=== PATIENT | male | born 1965 | race Caucasian/White ===

== ENCOUNTER → 2020-02-16 10:51 | Outpatient (CLI) | payer OTHER, SELFPAY ==
--- NOTE | 2020-02-16 10:59 | XR_ITS ---
PROCEDURE: XR CHEST 2V CLINICAL HISTORY: atypical angina COMPARISON: No exams were available for comparison FINDINGS: There is mild cardiomegaly without failure. The lungs are clear without infiltrates, suspicious nodules, or pleural effusions. Old left 8th rib fracture IMPRESSION: Mild cardiomegaly Dictated by: Jah Patel MD 02/16/2020 12:17 Electronically signed by Jah Ptael MD in [place] 02/16/2020 12:17
[2020-02-16 12:19] LABS: Basophils # 0.1 K/mm3 (0-0.2); Basophils % 0.7 % (0.1-2.0); Eosinophils # 0.3 K/mm3 (0.0-0.4); Eosinophils % 2.5 % (0.1-12.0); Hematocrit 42.1 % (42.0-52.0); Hemoglobin 14.3 g/dL (14.1-18.0); Lymphocytes # 2.3 K/mm3 (0.7-4.5); Lymphocytes % 21.2 % (10-50); Mean Corpuscular HGB Conc 34.1 g/dL (31.8-35.4); Mean Corpuscular Hemoglobin 32.2 pg (27.0-31.2); Mean Corpuscular Volume 94.6 fl (80-94); Mean Platelet Volume 8.9 fl (7.4-10.4); Monocytes # 0.6 K/mm3 (0.1-1.0); Monocytes % 5.4 % (1.7-9.3); Neutrophils # 7.5 K/mm3 (1.8-7.8); Neutrophils % 70.1 % (37.0-80.0); Platelet Count 220 K/mm3 (142-424); Red Blood Count 4.45 M/mm3 (4.60-6.20); Red Cell Distribution Width 13.1 % (11.5-17.5); White Blood Count 10.7 K/mm3 (4.8-10.8)
[2020-02-16 13:11] LABS: Chloride 105 mmol/L (98-107); Potassium 4.9 mmoL/L (3.5-5.1); Sodium 138 mmol/L (136-145)
[2020-02-16 13:14] LABS: Anion Gap 12.9 mEq/L (5-15); Blood Urea Nitrogen 24 mg/dl (9-20); Calcium 9.2 mg/dl (8.4-10.2); Carbon Dioxide 25 mmol/L (22.0-30.0); Estimated Glomerular Filt Rate 78 ml/min (>60); GFR (African American) 94 ML/MIN (>60); Glucose 90 mg/dl (74-100)
[2020-02-16 13:32] LABS: Free T4 (Free Thyroxine) 0.67 ng/dl (0.78-2.19)
== END ==
PROVIDERS: PCP Family Medicine; Visit Provider Internal Medicine
DX: I20.8 Other forms of angina pectoris (principal); R00.1 Bradycardia, unspecified; R06.00 Dyspnea, unspecified; R94.31 Abnormal electrocardiogram [ECG] [EKG]; Z87.891 Personal history of nicotine dependence
CPT/HCPCS: 36415; 71046; 80048; 84439; 84443; 85025; 93306

== ENCOUNTER 2020-02-17 09:14 | Day surgery (SDC) | payer OTHER, SELFPAY ==
[2020-02-17] VITALS (13 sets, daily range): BP systolic 95–141; BP diastolic 45–87; PULSE 49–60; RESP 16–20; TEMP 36.6; O2SAT 92–98; BMI 30.2
[2020-02-17 09:49] LABS: Basophils # 0.1 K/mm3 (0-0.2); Basophils % 0.7 % (0.1-2.0); Eosinophils # 0.3 K/mm3 (0.0-0.4); Eosinophils % 2.3 % (0.1-12.0); Hematocrit 43.6 % (42.0-52.0); Hemoglobin 14.8 g/dL (14.1-18.0); Lymphocytes # 2.4 K/mm3 (0.7-4.5); Lymphocytes % 18.9 % (10-50); Mean Corpuscular Hemoglobin 32.6 pg (27.0-31.2); Mean Corpuscular Volume 95.8 fl (80-94); Mean Platelet Volume 9.1 fl (7.4-10.4); Monocytes # 0.7 K/mm3 (0.1-1.0); Monocytes % 5.1 % (1.7-9.3); Neutrophils # 9.2 K/mm3 (1.8-7.8); Platelet Count 227 K/mm3 (142-424); Red Blood Count 4.55 M/mm3 (4.60-6.20); White Blood Count 12.6 K/mm3 (4.8-10.8)
[2020-02-17 09:53] LABS: Chloride 106 mmol/L (98-107); Sodium 138 mmol/L (136-145)
[2020-02-17 09:54] LABS: Potassium 4.4 mmoL/L (3.5-5.1)
[2020-02-17 09:56] LABS: Blood Urea Nitrogen 18 mg/dl (9-20); Creatinine Clearance Estimated 113 mL/min (50-200); Estimated Glomerular Filt Rate 78 ml/min (>60); GFR (African American) 94 ML/MIN (>60)
[2020-02-17 09:57] LABS: Anion Gap 10.4 mEq/L (5-15); Calcium 9.1 mg/dl (8.4-10.2); Carbon Dioxide 26 mmol/L (22.0-30.0); Glucose 100 mg/dl (74-100)
--- NOTE | 2020-02-17 12:30 | IR_ITS ---
APPROVED REPORT PROCEDURES Left heart catheterization Left ventriculogram Selective coronary angiogram INDICATION Class III-IV angina pectoris, Previous inferior lateral myocardial infarction by EKG Informed consent was obtained prior to the procedure. COMPLICATIONS None Estimated Blood Loss: less than 10ml TECHNIQUE One percent lidocaine used to anesthetize the right anterior aspect of the wrist. The right radial artery was accessed via the Seldinger technique. A 6 Israeli sheath was placed in the right radial artery. 2.5 mg of verapamil, 800 mcg of nitroglycerin, 1mg Lidocaine and 5000 U Heparin were given through the arterial sheath. The trap catheter was also used to perform left heart catheterization, left ventriculogram and selective coronary angiogram. At the end of the procedure the sheath was removed good hemostasis was achieved using Traclet band, patient was transferred to the postop holding area in stable condition. ANGIOGRAPHIC RESULTS The left main artery Normal The left anterior descending artery Is a diffusely small caliber vessel with mild diffuse 10% luminal irregularities. The circumflex artery Is nondominant of normal caliber with diffuse 10% mild luminal irregularities The right coronary artery Is a dominant vessel and normal The GARCIA ventriculogram reveals Normal 60% The left ventricular end-diastolic pressure Moderate to severely elevated at 30 mmHg IMPRESSION Mild rld-[id number] luminal irregularities as described above with a small caliber LAD consistent with hypertensive vasculopathy Normal ejection fraction Moderate to severely elevated LVEDP PLAN 1. Treat diastolic dysfunction. Patient will be started on Lasix 20 mg daily and advised to restrict salt and fluid intake 2. Daily baby aspirin 3. LDL less than 70 4. Risk factor modification Electronically signed by : Aldo Arrington, 02/17/2020 11:43:18
== END 2020-02-17 14:21 | disposition home or self-care (01) ==
LOC: CATHLAB 09:17
PROVIDERS: PCP Family Medicine; Visit Provider Internal Medicine
DX: R00.1 Bradycardia, unspecified; R06.00 Dyspnea, unspecified; R94.31 Abnormal electrocardiogram [ECG] [EKG]; Z87.891 Personal history of nicotine dependence; I25.110 Atherosclerotic heart disease of native coronary artery with unstable angina pectoris; I10 Essential (primary) hypertension; Z79.82 Long term (current) use of aspirin; Z79.899 Other long term (current) drug therapy
CPT/HCPCS: 80048; 85025; 93458; 99152; C1725; C1769; J1644; Q9967

== ENCOUNTER → 2020-02-24 16:12 | Outpatient (CLI) | payer OTHER, SELFPAY ==
[2020-02-24 18:36] LABS: Alanine Aminotransferase 35 U/L (12-78); Aspartate Amino Transferase 29 U/L (17-59); Bilirubin,Unconjugated 0.2 mg/dL (0.0-1.1)
[2020-02-24 18:37] LABS: Albumin Level 3.4 g/dl (3.5-5.0); Alkaline Phosphatase 83 U/L (38-126); Bilirubin,Direct 0.1 mg/dl (0.0-0.4); Bilirubin,Indirect 0.2 mg/dL (0.0-0.9); Bilirubin,Total 0.3 mg/dl (0.2-1.3); Chol/HDL Ratio 3.7 (1-3.5); Cholesterol 174 mg/dl (140-200); HDL Cholesterol 47 mg/dl (40-60); Magnesium 2.1 mg/dl (1.6-2.3); Triglycerides 210 mg/dl (30-150); VLDL Cholesterol 42 mg/dL (0-40)
== END ==
PROVIDERS: Visit Provider Physician Assistant
DX: I25.10 Atherosclerotic heart disease of native coronary artery without angina pectoris (principal); R00.1 Bradycardia, unspecified; R94.31 Abnormal electrocardiogram [ECG] [EKG]; Z87.891 Personal history of nicotine dependence
CPT/HCPCS: 36415; 80061; 80076; 83735

== ENCOUNTER 2025-04-01 11:46 | Outpatient (CLI) | payer OTHER, SELFPAY ==
--- OUTSIDE RECORDS SUMMARY | 2025-02-25 11:00 | XMS_ITS | Encounter Summary ---
Author Organization [place] [address] Care Team Providers Care Facility Examiner Name Role Phone Summer Garcia MD Primary Care Provider [phone] Aldo Arrington MD Unavailable [phone] Reason for Referral * Consultation (Routine) - Pending Review Specialty Diagnoses / Procedures Referred By Clara back Referred To Contact Diagnoses Degeneration of intervertebral disc of lumbar region with discogenic back pain and lower extremity pain Acute bilateral low back pain with bilateral sciatica Procedures [place] OFFICE/OUTPATIENT NEW MODERATE MDM 45 MINUTES Tiffanie Barroso PA-C [address] [place] [address] Phone: tel: fax: Referral ID Status Reason Start Date Expiration Date V isits Requested Visits Authorized [id number] Pending Review 02/25/2025 02/25/2026 99 99 Reason for Visit * Reason Comments Back Pain low backstarts at bu ttocks and shoots to upper thigh Encounter Details Date Type Department Care Team (Late st Contact Info) Description 02/25/2025 11:00 AM EDT Office Visit [facility] [address] [place] [address] Tiffanie Barroso PA-C [address] [place] [address] Degeneration of intervertebral disc of lumbar region with discogenic back pain and lower extremity pain (Primary Dx); Acute bilateral low back pain with bilateral sciatica; Chronic low back pain, unspecified back pain laterality, unspecified whether sciatica present Social History Tobacco Use Types Packs/Day Years Used Date Smoking Tobacco: Former Cigarettes 1 20 0 08/20/1984 - 08/20/2004 Smokeless Tobacco: Never Tobacco Cessation:Counseling Given: Not Answered Alcohol Use Standard Drinks/Week Comments Yes 0 (1 standard drink = 0.6 oz pur e alcohol) 2 mixed drink, PHQ-2 Answer Date Recorded PHQ-2 Total Score 0 09/08/2024 Sex and Gender Information Value Date Recorded Sex Assigned at Not on file Legal Sex Male 6:59 PM EDT Gender Identity Not on file Sexual Orientation Not on file documented as of this encounter Last Filed Vital Signs Vital Sign Reading Time Taken Comments Blood Pressure 118/80 02/25/2025 11:13 AM EDT Pulse 72 02/25/2025 11:13 AM EDT Temperature - - Respiratory Rate 16 02/25/2025 11:13 AM EDT Oxygen Saturation 99% 02/25/2025 11:13 AM EDT Inhaled Oxygen Concentration - - Weight 99.3 kg (219 lb) 02/25/2025 11:13 AM EDT Height 179.1 cm (5' 10.5 ) 02/25/2025 11:13 AM E DT Body Mass Index 30.98 02/25/2025 11:13 AM EDT documented in this encounter Functional Status * Is the person deaf or does he/she have serious difficulty hearing? Answer Date of Assessment Author No 09/08/2024 3:00 PM Lary Wade RMA * Is the person blind or does he/she have serious difficulty seeing even when wearing glasses? Answer Date of Assessment Author No 09/08/2024 3:00 PM Trinh Wade RMA * Does this person have serious difficulty walking or climbing stairs? Answer Date of Assessment Author No 09/08/2024 3:00 PM Lary Wade RMA * Does this person have difficulty dressing or bathing? Answer Date of Assessment Author No 09/08/2024 3:00 PM Lary Wade RMA * Because of a physical, mental or emotional condition, does this person have difficulty doing errands alone such as visiting a doctor's office or shopping? Answer Date of Assessment Author No 09/08/2024 3:00 PM Lary Wade RMA documented as of this encounter Mental Status * Because of a physical, mental or emotional condition, does this person have serious difficulty concentrating, remembering or making decisions? Answer Entry Date Author No 09/08/2024 3:00 PM Lary Wade RMA documented in this encounter Ordered Prescriptions Prescription Sig Dispense Quantity Refills Last Filled Start Date End Date tiZANidine (ZANAFLEX) 4 mg Oral TabletIndications: Chronic low back pain, unspecified back pain laterality, unspecified whether sciatica present TAKE 1 TABLET BY MOUTH AT BEDTIME NEEDED 90 Tablet 02/25/2025 documented in this encounter Progress Notes * Tiffanie Barroso PA-C - 02/25/2025 11:00 AM EDT Chief Complaint Patient presents with ??? Back Pain low back starts at buttocks and shoots to upper thigh HPI: Pt having pain in left leg pain, sharp, post to foot x 1mo, now also in right leg post to knee. No incont. No injury. Hx of ddd with lumbar fusion. ROS: Review of Systems See above, otherwise noncontributory. See time date stamps in EMR for other pertinent history components reviewed as part of today's encounter. OBJECTIVE: Vitals: 02/25/25 1113 BP: 118/80 Pulse: 72 Resp: 16 SpO2: 99% Weight: 219 lb (99.3 kg) Height: 5' 10.5 (1.791 m) Body mass index is 30.98 kg/m??. Physical Exam Cardiovascular: Rate and Rhythm: Normal rate and regular rhythm. Pulmonary: Effort: Pulmonary effort is normal. Breath sounds: Normal breath sounds. Musculoskeletal: Comments: Back: normal strength, tone, sensation and muscle mass bilat le. Reflexes are normal and symmetric bilat le. Rom: back limited range of motion with pain. SLR neg bilat. No results found for this visit on 02/25/25. ASSESSMENT/PLAN: Diagnoses and all orders for this visit: Degeneration of intervertebral disc of lumbar region with discogenic back pain and lower extremity pain - betamethasone acet-betamethasone sodium phos (CELESTONE) injection 6 mg - AMB REFERRAL TO ORTHOPEDIC SURGERY Acute bilateral low back pain with bilateral sciatica - betamethasone acet-betamethasone sodium phos (CELESTONE) injection 6 mg - AMB REFERRAL TO ORTHOPEDIC SURGERY Chronic low back pain, unspecified back pain laterality, unspecified whether sciatica present Overview: Has followed with chiropracter in past Takes zanaflex for flares No recent imaging Orders: - tiZANidine (ZANAFLEX) 4 mg Oral Tablet; TAKE 1 TABLET BY MOUTH AT BEDTIME NEEDED Dispense: 90Tablet; Refill: 0 Sx care. Follow up if no significant improvement or worsening of sx's or as recommended. documented in this encounter Plan of Treatment Upcoming Encounters Date Type Department Care Team (Late st Contact Info) Description 04/09/2025 9:15 AM EDT Office Visit [facility] [address] [id number] Jj Motta MD [address] [facility] [address] [place] [address] 04/23/2025 3:00 PM EDT Office Visit [facility] [address] [place] [address] Summer Garcia MD [address] [place] [address] Scheduled Referrals Name Type Priority Associated Diagnoses Orde r Schedule AMB REFERRAL TO ORTHOPEDIC SURGERY Outpatient Referral Routine Degeneration of intervertebral disc of lumbar region with discogenic back pain and lower extremity pain Acute bilateral low back pain with bilateral sciatica Ordered: 02/25/2025 documented as of this encounter Goals Goal Patient Goal Type Associated Problems Recent Progress Patient-Stated? Author Blood Pressure < 140/90 Blood Pressure 122/80(2024 12:23 PM EDT) No Omid Quezada, CYNDIE Eat better, exercise, reach an ideal body weight General No Kayli Roca Gerda NILDA Stay Tobacco Free Lifestyle No Abelino, NILDA Carpio documented as of this encounter Visit Diagnoses Diagnosis Degeneration of intervertebral disc of lumbar region with discogenic back pain and lower extremity pain- Primary Acute bilateral low back pain with bilateral sciatica Chronic low back pain, unspecified back pain laterality, unspecified whether sciatica present documented in this encounter Administered Medications Inactive Administered Medications - up to 1 most recent administrations Medication Order MAR Action Action Date Dose Rate Site betamethasone acet-betamethasone sodium phos (CELESTONE) injection 6 mg 6 mg, Intramuscular, ONCE, 1 dose, On Sun02/25/25 at 1145, Do not refrigerate, Dx: 1. Degeneration of intervertebral disc of lumbar region with discogenic back pain and lower extremity pain 2. Acute bilateral low back pain with bilateral sciaticaIndications:Degener ation of intervertebral disc of lumbar region with discogenic back pain and lower extremity pain,Acute bilateral low back pain with bilateral sciatica Given 02/25/2025 11:41 AM EDT 6 mg Left upper gluteus documented in this encounter Discontinued Medications Medication Sig Discontinue Reason Start Date End Da te tiZANidine (ZANAFLEX) 4 mg Oral TabletIndications:Chroni c low back pain, unspecified back pain laterality, unspecified whether sciatica present TAKE 1 TABLET BY MOUTH AT BEDTIME NEEDED Reorder 04/29/2024 02/25/2025 documented as of this encounter Care Teams Facility Examiner Relationship Specialty Start Date End Date Summer Garcia MD [address] [place] [address] PCP - General Family Medicine 08/06/19 Aldo Arrington MD [address] [place] [address] Internal Medicine-Cardiovascular Disease 04/29/24 documented as of this encounter
--- OUTSIDE RECORDS SUMMARY | 2025-03-17 09:25 | XMS_ITS | Encounter Summary ---
Author Organization [facility] Address [address] [place] [address] Care Team Providers Care Precision Honer Name Role Phone Summer Garcia MD Primary Care Provider [phone] Aldo Arrington MD Unavailable [phone] Encounter Details Date Type Department Care Team (Late st Contact Info) Description 03/17/2025 9:25 AM EDT Ancillary Procedure [facility] [address] [facility] [address] [place] [address] Lyla Castro PA [address] [address] Lumbar pain Social History Tobacco Use Types Packs/Day Years Used Date Smoking Tobacco: Former Cigarettes 1 20 0 08/20/1984 - 08/20/2004 Smokeless Tobacco: Never Alcohol Use Standard Drinks/Week Comments Yes 0 (1 standard drink = 0.6 oz pur e alcohol) 2 mixed drink, PHQ-2 Answer Date Recorded PHQ-2 Total Score 0 09/08/2024 Sex and Gender Information Value Date Recorded Sex Assigned at Not on file Legal Sex Male 6:59 PM EDT Gender Identity Not on file Sexual Orientation Not on file documented as of this encounter Functional Status * Is the [...] Lary Wade RMA documented in this encounter Plan of Treatment Upcoming Encounters Date Type Department Care Team (Late st Contact Info) Description 04/09/2025 9:15 AM EDT Office Visit [facility] [address] [phone] Jj Motta MD [address] [facility] [address] [place] [address] 04/23/2025 3:00 PM EDT Office Visit [facility] [address] [place] [address] Summer Garcia MD [address] [place] [address] documented as of this encounter Goals Goal Patient Goal Type Associated Problems Recent Progress Patient-Stated? Author Blood Pressure < 140/90 Blood Pressure 122/80(2024 12:23 PM EDT) No Omid Quezada, CYNDIE Eat better, exercise, reach an ideal body weight General No Kayli Roca RMA Stay Tobacco Free Lifestyle Kayli Woods RMA documented as of this encounter Procedures Procedure Name Priority Date/Time Associated Diagnosis Comments XR LUMBAR SPINE AP LATERAL FLEXION AND EXTENSION Routine 03/17/2025 9:29 AM EDT Lumbar pain documented in this encounter Results * XR LUMBAR SPINE AP LATERAL FLEXION AND EXTENSION (03/17/2025 9:29 AM EDT) Narrative Genericuser, Miranda - 03/17/2025 9:29 AM EDT Please see physician's note from office encounter for x-ray imaging result Lyla [facility] IMG DIAGNOSTIC IMAGING ORDERABL ES Final Result documented in this encounter Visit Diagnoses Diagnosis Lumbar pain Lumbago documented in this encounter Care Teams Precision Honer Relationship Specialty Start Date End Date Summer Garcia MD [address] [place] [address] PCP - General Family Medicine 08/06/19 Aldo Arrington MD [address] [place] [address] Internal Medicine-Cardiovascular Disease 04/29/24 documented as of this encounter
--- OUTSIDE RECORDS SUMMARY | 2025-03-17 09:45 | XMS_ITS | Encounter Summary ---
Author Organization [facility] Address [address] [place] [address] Care Team Providers Care Mount Loader Name Role Phone Summer Garcia MD Primary Care Provider [phone] Aldo Arrington MD Unavailable [phone] Reason for Referral * MRI/CAT Scan (Routine) - AFF Authorization Not Needed Specialty Diagnoses / Procedures Referred By Contjennifer t Referred To Contact Orthopedic Surgery Diagnoses Lumbar pain Procedures MRI LUMBAR SPINE WO CONTRAST Lyla Castro PA [address] [place] [address] Phone: tel: fax: [facility] [address] [place] [address] Phone: tel: fax: Referral ID Status Reason Start Date Expiration Date Visits Requested Visits Authorized [id number] AFF Authorization Not Needed 03/17/2025 03/17/2026 1 1 Reason for Visit * Reason Comments Pain Encounter Details Date Type Department Care Team (Latest Contact Info) Description 03/17/2025 9:45 AM EDT Office Visit [facility] [address] [place] [address] Lyla Castro PA [address] [place] [phone] Lumbar pain (Primary Dx); Lumbar radiculopathy; Degeneration of intervertebral disc of lumbar region with discogenic back pain and lower extremity pain; Lumbar spondylosis; Myofascial pain; History of lumbar fusion; Sciatica, unspecified laterality Social History Tobacco Use Types Packs/Day Years [...] Sign Reading Time Taken Comments Blood Pressure - - Pulse - - Temperature - - Respiratory Rate - - Oxygen Saturation - - Inhaled Oxygen Concentration - - Weight 99.8 kg (220 lb) 03/17/2025 9:39 AM EDT Height 179.1 cm (5' 10.5 ) 03/17/2025 9:39 AM ED T Body Mass Index 31.12 03/17/2025 9:39 AM EDT documented in this encounter Functional [...] Assessment Author No 09/08/2024 3:00 PM Trinh WadeEMELYLary documented as of this encounter Mental Status * Because of a physical, mental or emotional condition, does this person have serious difficulty concentrating, remembering or making decisions? Answer Entry Date Author No 09/08/2024 3:00 PM Lary Wade NILDA documented in this encounter Progress Notes * Lyla Castro PA - 03/17/2025 9:45 AM EDT Images from the original note were not included. 03/18/25 CHIEF COMPLAINT: Chief Complaint Patient presents with Lower Back - Pain HISTORY OF PRESENT ILLNESS: 60 y.o. male Low back pain Bilateral leg pain Radiates posteriorly from buttocks to toes Symptoms started around November 2024 No bowel or bladder dysfunction No saddle anesthesia Previous Treatment: Tylenol Ibuprofen IM steroid Oral steroid Past Medical History: Body mass index is 31.12 kg/m??. L5-S1 AP fusion done 20 years ago Past Medical History: Diagnosis Date Carcinoid tumor of colon (HCC) 2014 Chronic back pain Colon cancer (HCC) Former smoker H/O malignant carcinoid tumor 04/24/2018 Resected surgically 2014 Follow up sigmoidoscopy showed no residual lesion HTN (hypertension) Hyperlipidemia Obesity Prostate disorder Social History: reports that he quit smoking about 20 years ago. His smoking use included cigarettes. He started smoking about 40 years ago. He has a 20 pack-year smoking history. He has never used smokeless tobacco. He reports current alcohol use. He reports that he does not use drugs. PHYSICAL EXAM: LUMBAR/SACRALEXAMINATION: Inspection/Palpation: Points to generalized lumbar spine and bilateral buttocks as maximal source of pain Range of Motion: Very guarded Motor: 5/5 strength bilateral lower extremities Sensation: Intact Special Tests: Positive straight leg raise bilaterally Reflexes: Deferred Gait & station: Stable Diagnostic Testing: L spine X rays 4V: Independently reviewed L5-S1 interbody fusion hardware appears stable Mild adjacent segment changes at L4-5 Significant thoracic degenerative changes MRI Lumbar Spine: Independently reviewed None Impression: 1. Lumbar pain XR LUMBAR SPINE AP LATERAL FLEXION AND EXTENSION MRI LUMBAR SPINE WO CONTRAST 2. Lumbar radiculopathy 3. Degeneration of intervertebral disc of lumbar region with discogenic back pain and lower extremity pain 4. Lumbar spondylosis 5. Myofascial pain 6. History of lumbar fusion 7. Sciatica, unspecified laterality Medical decision Making: Patient presents for evaluation of persistent low back and bilateral leg pain. Symptoms have been going on for the past 3 months and progressively worsening. He has tried multiple different medications and home exercises with no improvement. He has had a prior L5-S1 interbody fusion 20 years ago. He has some adjacent segment changes. Will get a lumbar MRI to evaluate for neural compression Plan: Lumbar MRI Follow-up with me to discuss results Reviewed imaging with patient Reassurance given Activity as tolerated Lyla Castro PA-C [facility] [phone] Disclaimer: This note was partially transcribed via voice recognition software. Though all efforts were made to ensure accuracy, it is possible this note may contain survey crew chief errors. Please bring any inaccuracies discovered to my attention so I may make a corrective addendum in a timely fashion. documented in this encounter Plan of Treatment Upcoming Encounters Date Type Department Care Team (Late st Contact Info) Description 04/09/2025 9:15 AM EDT [facility] [address] [place] [address] Jj Motta MD [address] [facility] [address] [place] [address] 04/23/2025 3:00 PM EDT Office Visit [facility] [address] [place] [address] Summer Garcia MD [address] [place] [address] documented as of this encounter Goals Goal Patient Goal Type Associated Problems Recent Progress Patient-Stated? Author Blood Pressure < 140/90 Blood Pressure 122/80(2024 12:23 PM EDT) Omid Soto, CYNDIE Eat better, exercise, reach an ideal body weight General No Kayli Roca RMA Stay Tobacco Free Lifestyle No Kayli Roca RMA documented as of this encounter Results * MRI LUMBAR SPINE WO CONTRAST (03/25/2025 2:57 PM EDT) Narrative [facility] - 03/25/2025 2:57 PM EDT Please see the scanned MRI report associated with this order on the Imaging tab of the patient's chart. us Lyla FERRELL IMG MRI ORDERABLES Final Result [facility] * XR LUMBAR SPINE AP LATERAL FLEXION AND EXTENSION (03/17/2025 9:29 AM EDT) Narrative Miranda Zimmer - 03/17/2025 9:29 AM EDT Please see physician's note from office encounter for x-ray imaging result us Lyla FERRELL IMG DIAGNOSTIC IMAGING ORDERABL ES Final Result documented in this encounter Visit Diagnoses Diagnosis Lumbar pain- Primary Lumbago Lumbar radiculopathy Thoracic or lumbosacral neuritis or radiculitis, unspecified Degeneration of intervertebral disc of lumbar region with discogenic back pain and lower extremity pain Lumbar spondylosis Lumbosacral spondylosis without myelopathy Myofascial pain Mylagia and myositis, unspecified History of lumbar fusion Sciatica, unspecified laterality Lumbar pain Lumbago Lumbar pain Lumbago documented in this encounter Care Teams Mount Loader Relationship Specialty Start Date End Date Summer Garcia MD [address] [place] [address] PCP - General Family Medicine 08/06/19 Aldo Arrington MD [address] [address] Internal Medicine-Cardiovascular Disease 04/29/24 documented as of this encounter
--- OUTSIDE RECORDS SUMMARY | 2025-03-19 12:30 | XMS_ITS | Encounter Summary ---
Author Organization [place] [address] Care Team Providers Care Superintendent Circus Name Role Phone Summer Garcia MD Primary Care Provider [phone] Aldo Arrington MD Unavailable [phone] Reason for Visit * Reason Comments Back Pain Would like to discus s short term disability for back pain. Has x-ray done recently and was told it was extremely severe. Was told Ortho cannot do STD forms until after surgery and it has not been scheduled yet. Encounter Details Date Type Department Care Team (Late st Contact Info) Description 03/19/2025 12:30 PM EDT Office Visit [facility] [address] [place] [address] Summer Garcia MD [address] [place] [address] Degeneration of intervertebral disc of lumbar region with discogenic back pain and lower extremity pain (Primary Dx); Opioid dependence in remission (HCC); History of prostate cancer; IGT (impaired glucose tolerance); Screening for thyroid disorder; Vitamin D deficiency; Screening for deficiency anemia; Mixed hyperlipidemia; Essential hypertension Social History Tobacco Use Types Packs/Day Years [...] Sign Reading Time Taken Comments Blood Pressure 122/80 03/19/2025 12:23 PM EDT Pulse 98 03/19/2025 12:23 PM EDT Temperature 36.3 C (97.3 F) 03/19/2025 12:23 PM EDT Respiratory Rate - - Oxygen Saturation 99% 03/19/2025 12:23 PM EDT Inhaled Oxygen Concentration - - Weight 97.1 kg (214 lb) 03/19/2025 12:23 PM EDT Height 179.1 cm (5' 10.5 ) 03/19/2025 12:23 PM E DT Body Mass Index 30.27 03/19/2025 12:23 PM EDT documented in this encounter Functional Status [...] Lary Wade RMA documented in this encounter Progress Notes * Summer Garcia MD - 03/19/2025 12:30 PM EDTAssociated Problem(s): History of prostate cancer Orders: PROSTATE SPECIFIC ANTIGEN (TUMOR MARKER); Future * Summer Garcia MD - 03/19/2025 12:30 PM EDTAssociated Problem(s): Mixed hyperlipidemia Orders: COMPREHENSIVE METABOLIC PANEL; Future LIPID PANEL REFLEX; Future * Summer Garcia MD - 03/19/2025 12:30 PM EDTAssociated Problem(s): Essential hypertension Orders: COMPREHENSIVE METABOLIC PANEL; Future * Summer Garcia MD - 03/19/2025 12:30 PM EDT Assessment & Plan Back pain - Persistent back pain since 11/2024, radiating down the left side and eventually to the right side - Lumbar x-ray showed L5-S1 fusion hardware stable with mild adjacent segment changes at L4-L5 and significant thoracic degenerative changes - Lumbar MRI scheduled for 03/25/2025; s/p eval by ortho - Toradol injection to be administered today for pain relief; informed it is a non-narcotic anti-inflammatory injection - Disc'd alt APAP / IBU OTC - declines stronger pain medications Short-term disability paperwork - 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 - Orthopedic team is currently managing condition with MRI planned and outpt follow up scheduled (with possible surgery) - Communication with orthopedic office made by both my MA and myself -> they will not complete forms - Have asked pt to send paperwork to us for completion Health maintenance / in advance for AWV - Comprehensive panel of blood work to be ordered, to be completed prior to physical examination Assessment & Plan Degeneration of intervertebral disc of lumbar region with discogenic back pain and lower extremity pain Orders: ketorolac (TORADOL) injection 60 mg Opioid dependence in remission (HCC) Declines pain medications Will cont with OTCs - disc'd dosing and limits LABS to be done prior to AWV History of prostate cancer Orders: PROSTATE SPECIFIC ANTIGEN (TUMOR MARKER); Future IGT (impaired glucose tolerance) Orders: COMPREHENSIVE METABOLIC PANEL; Future HEMOGLOBIN A1C; Future Screening for thyroid disorder Orders: TSH REFLEX TO FT4; Future Vitamin D deficiency Orders: VITAMIN D 25 HYDROXY; Future Screening for deficiency anemia Orders: CBC WITH DIFF; Future VITAMIN B12 LEVEL; Future Mixed hyperlipidemia Orders: COMPREHENSIVE METABOLIC PANEL; Future LIPID PANEL REFLEX; Future Essential hypertension Orders: COMPREHENSIVE METABOLIC PANEL; Future Return in about 4 weeks (around 04/16/2025) for Annual Physical and Wellness, Pre-Diabetes, HTN, HLD, (FASTING labs prior). A new medicine was prescribed during this office visit. I did discuss with the patient the reason for prescribing this new medication. I also did inform the patient of possible likely side effects, but also encouraged the patient to read the medication insert that will accompany their prescription and encouraged them to discuss any questions about the insert with their pharmacist. The patient was instructed to call if having side effects or possible allergic reaction after taking. I also discussed with the risk of stopping the medication or deviating from prescribing instructions. Dosing instructions are present on the AVS and the patient is aware. I inquired both patient and/or family of any questions and answered accordingly. Return precautions were discussed. Subjective Lewis Mercado . is a 60 y.o. male Chief Complaint Patient presents with Back Pain Would like to discuss short term disability for back pain. Has x-ray done recently and was told it was extremely severe. Was told Ortho cannot do STD forms until after surgery and it has not been scheduled yet. History of Present Illness The patient is a 60-year-old male here for follow-up on his back pain. He has been seen by several providers thus far but has not seen me for this issue. He was first seen by Dr. Savannah Sheppard on 2024, where he reported low back pain that radiated down his left side and then eventually to his right side. He was given a steroid pack, Celestone shot, and an x-ray along with home stretches. Later, he had a follow-up with Tiffanie Barroso on February 25, 2025, and reported continued pain in his left leg that went down to his foot. At that point, he was given another shot of Celestone, referred to orthopedic surgery, and given p.r.n. muscle relaxers. He was seen by Sydnee Cristobal two days ago for thesame issue. Of note, he did have an L5-S1 AP fusion done many years ago. They have ordered a lumbarMRI for him and instructed him on activity as tolerated. He has a lumbar MRI scheduled on March, through Sydnee Cristobal. He also had a lumbar x-ray done at his Sydnee Cristobal appointment, which showed L5-S1 fusion hardware that was stable with mild adjacent segment changes at L4-L5 and significant thoracic degenerative changes. He presents today asking for short- term disability paperwork. He has been experiencing back pain since November 2024. He underwent major back surgery in 2004, performed by Dr. Juan Manuel Thomas, which involved the fusion of two discs with screws and cables on bothsides. The doctor had informed him that the surgery would provide relief for approximately 15 years. He believes he may have aggravated the condition or developed arthritis. An x-ray taken yesterday revealed significant changes, leading the evaluating provider to express surprise at his ability to walk per pt. He was advised that injections might not be beneficial and that surgery could be the only solution. 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 Tasks that used to take him 10 minutes now require 2 hours. He reports severe pain upon wakingup in the morning, making it difficult to walk on the floor. Lazaro his muscles during urination causes severe leg pain, sometimes causing him to almost fall. He is seeking short-term disabilitydue to his inability to work. He has been taking ibuprofen and Tylenol but finds them ineffective. Steroids have also been unhelpful. He takes three ibuprofen and two Tylenol Rapid Release at 2 AM, 8AM, and 11 AM. He received a Celestone injection three weeks ago, which provided relief for about three days. He is open to trying Toradol injections but does not want stronger pain medication due toa past addiction to OxyContin 750 mg, which he took for 3 to 4 years following his back surgery. He has a history of prostate cancer and underwent partial prostate removal, which has resulted in some bladder control issues that worsen with pain. 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 Wt Readings from Last 3 Encounters: 03/19/25 214 lb (97.1 kg) 03/17/25 220 lb (99.8 kg) 02/25/25 219 lb (99.3 kg) Physical Exam Physical Exam Constitutional: General: He is in acute distress (appears uncomfortable, standing and bracing self on exam table). Appearance: He is not toxic-appearing. HENT: Head: Normocephalic and atraumatic. Eyes: Extraocular Movements: Extraocular movements intact. Conjunctiva/sclera: Conjunctivae normal. Cardiovascular: Rate and Rhythm: Normal rate. Pulmonary: Effort: Pulmonary effort is normal. Musculoskeletal: General: Tenderness (lumbar) present. No swelling. Normal range of motion. Skin: General: Skin is warm and dry. Capillary Refill: Capillary refill takes less than 2 seconds. Neurological: General: No focal deficit present. Mental Status: He is alert. Mental status is at baseline. Psychiatric: Mood and Affect: Mood normal. Behavior: Behavior normal. Results - Imaging: - Lumbar x-ray: L5-S1 fusion hardware stable with mild adjacent segment changes at L4-L5 and significant thoracic degenerative changes Summer Garcia MD 03/19/2025 I have spent a total of 32 minutes on Preparing to see the patient (e.g. review of tests), Obtaining and/or reviewing separately obtained history, Referring and communicating with other healthcare professionals (not separately reported), Documenting clinical information in the electronic or other health record, and completion of paperwork. The provider educated the patient (or legal charter representative) on the use of the ambient listening artificial intelligence tool, My Top 10. They were informed that this AI tool processes the conversation to generate a clinical note with the expected benefit of improved accuracy while achieving an improved encounter experience for the patient and provider.?The provider explained that the medical information captured by the AI tool including, but not limited to, diagnoses and treatment plan would be protected in accordance with applicable privacy laws and that all diagnoses and treatment decisions would be made by the provider. The provider explained that the note generated will be reviewed bythe provider for accuracy to minimize potential errors.? The patient was given an opportunity to ask questions and opt out of proceeding with the use of the AI tool. After being informed of such information, the patient (or legal charter representative), and each individual in attendance with the patient, verbally consented to the use of the AI tool. documented in this encounter Plan of Treatment Upcoming Encounters Date Type Department Care Team (Late st Contact Info) Description 04/09/2025 9:15 AM EDT Office Visit [facility] [address] [address] Jj Motta MD [address] [facility] [address] [place] [address] 04/23/2025 3:00 PM EDT Office Visit [facility] [address] [place] [address] Summer Garcia MD [address] [place] [address] Scheduled Orders Name Type Priority Associated Diagnoses Orde r Schedule COMPREHENSIVE METABOLIC PANEL Lab Routine IGT (impaired glucose tolerance) Mixed hyperlipidemia Essential hypertension 1 Occurrences starting 03/19/2025 until 03/19/2026 CBC WITH DIFF Lab Routine Screening for deficiency anemia 1 Occurrences starting 03/19/2025 until 03/19/2026 TSH REFLEX TO FT4 Lab Routine Screening for thyroid disorder 1 Occurrences starting 03/19/2025 until 03/19/2026 LIPID PANEL REFLEX Lab Routine Mixed hyperlipidemia 1 Occurrences starting 03/19/2025 until 03/19/2026 VITAMIN D 25 HYDROXY Lab Routine Vitamin D deficiency 1 Occurrences starting 03/19/2025 until 03/19/2026 VITAMIN B12 LEVEL Lab Routine Screening for deficiency anemia 1 Occurrences starting 03/19/2025 until 03/19/2026 HEMOGLOBIN A1C Lab Routine IGT (impaired glucose tolerance) 1 Occurrences starting 03/19/2025 until 03/19/2026 PROSTATE SPECIFIC ANTIGEN (TUMOR MARKER) Lab Routine History of prostate cancer 1 Occurrences starting 03/19/2025 until 03/19/2026 documented as of this encounter Goals Goal Patient Goal Type Associated Problems Recent Progress Patient-Stated? Author Blood Pressure < 140/90 Blood Pressure 122/80(2024 12:23 PM EDT) Omid Soto RN Eat better, exercise, reach an ideal body weight General Kayli Woods RMA Stay Tobacco Free Lifestyle Kayli Woods RMA documented as of this encounter Visit Diagnoses Diagnosis Degeneration of intervertebral disc of lumbar region with discogenic back pain and lower extremity pain- Primary Opioid dependence in remission (HCC) Opioid type dependence, in remission History of prostate cancer Personal history of malignant neoplasm of prostate IGT (impaired glucose tolerance) Impaired glucose tolerance test Screening for thyroid disorder Vitamin D deficiency Unspecified vitamin D deficiency Screening for deficiency anemia Screening for other and unspecified deficiency anemia Mixed hyperlipidemia Essential hypertension Unspecified essential hypertension documented in this encounter Administered Medications Inactive Administered Medications - up to 1 most recent administrations Medication Order MAR Action Action Date Dose Rate Site ketorolac (TORADOL) injection 60 mg 60 mg, Intramuscular, ONCE, 1 dose, On Pavithra 03/19/25 at 1300, For IM Administration: Give undiluted, slowly and deeply into the muscle., Dx: 1. Degeneration of intervertebral disc of lumbar region with discogenic back pain and lower extremity painIndications:Degenerati on of intervertebral disc of lumbar region with discogenic back pain and lower extremity pain Given 03/19/2025 1:02 PM EDT 60 mg Left upper gluteus documented in this encounter Discontinued Medications Medication Sig Discontinue Reason Start Date End Da te promethazine-dextrometh orphan (PROMETHAZINE-DM) 6.25-15 mg/5 mL Oral SyrupIndications:Upper respiratory tract infection, unspecified type Take 5 mL by mouth nightly as needed. Disp 6 oz DELETE-Therapy completed 12/29/2024 03/19/2025 documented as of this encounter Orders Medications Ordered That Pramod ht Not Have Been Administered Count Last Ordered Date First Ordered Date ketorolac (TORADOL) injection 60 mg 1 03/19 documented in this encounter Care Teams Superintendent Circus Relationship Specialty Start Date End Date Summer Garcia MD [address] [place] [address] PCP - General Family Medicine 08/06/19 Aldo Arrington MD [address] [address] Internal Medicine-Cardiovascular Disease 04/29/24 documented as of this encounter
--- OUTSIDE RECORDS SUMMARY | 2025-03-25 14:30 | XMS_ITS | Encounter Summary ---
Author Organization [facility] Address [address] [place] [address] Care Team Providers Care Metal Container Maker Name Role Phone Summer Garcia MD Primary Care Provider [phone] Aldo Arrington MD Unavailable [phone] Reason for Visit * MRI/CAT Scan (Routine) - AFF Authorization Not Needed Specialty Diagnoses / Procedures Referred By Clara back Referred To Contact Orthopedic Surgery Diagnoses Lumbar pain Procedures MRI LUMBAR SPINE WO CONTRAST Lyla Castro PA [address] [place] [address] Phone: tel: fax: [facility] [address] [place] [address] Phone: tel: fax: Referral ID Status Reason Start Date Expiration Date Visits Requested Visits Authorized [id number] AFF Authorization Not Needed 03/17/2025 03/17/2026 1 1 Encounter Details Date Type Department Care Team (Late st Contact Info) Description 03/25/2025 2:30 PM EDT Ancillary Procedure [facility] [address] [place] [address] Lyla Castro PA [address] [place] [address] Lumbar pain Social History Tobacco Use Types [...] Author No 09/08/2024 3:00 PM Lary Wade Aye NILDA * Is the person blind or does he/she have serious difficulty seeing even when wearing glasses? Answer Date of Assessment Author No 09/08/2024 3:00 PM Lary Wade Aye NILDA * Does this person have serious difficulty walking or climbing stairs? Answer Date of Assessment Author No 09/08/2024 3:00 PM Lary Wade Aye NILDA * Does this person have difficulty dressing or bathing? Answer Date of Assessment Author No 09/08/2024 3:00 PM Lary Wade, NILDA * Because of a physical, mental or [...] Lary Wade NILDA documented in this encounter Plan of Treatment Upcoming Encounters Date Type Department Care Team (Late st Contact Info) Description 04/09/2025 9:15 AM EDT Office Visit [facility] [address] [place] [address] Jj Motta MD [address] [facility] [address] [place] [address] 04/23/2025 3:00 PM EDT Office Visit [facility] [address] [place] [address] Summer Garcia MD [address] [place] [address] documented as of this encounter Goals Goal Patient Goal Type Associated Problems Recent Progress Patient-Stated? Author Blood Pressure < 140/90 Blood Pressure 122/80(2024 12:23 PM EDT) Omid Soto, CYNDIE Eat better, exercise, reach an ideal body weight General Kayli Woods RMA Stay Tobacco Free Lifestyle Kayli Woods RMA documented as of this encounter Procedures Procedure Name Priority Date/Time Associated Diagnosis Comments MRI LUMBAR SPINE WO CONTRAST Routine 03/25/2025 2:57 PM EDT Lumbar pain documented in this encounter Results * MRI LUMBAR SPINE WO CONTRAST (03/25/2025 2:57 PM EDT) Narrative [facility] - 03/25/2025 2:57 PM EDT Please see the scanned MRI report associated with this order on the Imaging tab of the patient's chart. us Lyla FERRELL IMG MRI ORDERABLES Final Result [facility] documented in this encounter Visit Diagnoses Diagnosis Lumbar pain Lumbago documented in this encounter Care Teams Metal Container Maker Relationship Specialty Start Date End Date Summer Garcia MD [address] [place] [address] PCP - General Family Medicine 08/06/19 Aldo Arrington MD [address] [address] Internal Medicine-Cardiovascular Disease 04/29/24 documented as of this encounter
--- OUTSIDE RECORDS SUMMARY | 2025-03-31 13:45 | XMS_ITS | Encounter Summary ---
Author Organization [facility] Address [address] [place] [address] Care Team Providers Care Train Operator Name Role Phone Summer Garcia MD Primary Care Provider [phone] Aldo Arrington MD Unavailable [phone] Reason for Visit * Reason Comments Follow-up Encounter Details Date Type Department Care Team (Latest Contact Info) Description 03/31/2025 1:45 PM EDT Office Visit [facility] [address] [place] [address] [place] [address] Lyla Castro PA [address] [address] Strain of lumbar region, initial encounter (Primary Dx); Spinal stenosis of lumbar region, unspecified whether neurogenic claudication present; Lumbar radiculopathy; Lumbar spondylosis; Lumbar pain; Myofascial pain; Lumbar foraminal stenosis; Spondylolisthesis of lumbar region; Chronic low back pain, unspecified back pain laterality, unspecified whether sciatica present; History of lumbar fusion; Degeneration of intervertebral disc of lumbar region with discogenic back pain and lower extremity pain Social History Tobacco Use Types Packs/Day [...] - Inhaled Oxygen Concentration - - Weight 97.1 kg (214 lb) 03/31/2025 1:50 PM EDT Height 177.8 cm (5' 10 ) 03/31/2025 1:50 PM EDT Body Mass Index 30.71 03/31/2025 1:50 PM EDT documented in this encounter Functional Status * Is the person deaf or does he/she have serious difficulty hearing? Answer Date of Assessment Author No 09/08/2024 3:00 PM BELTRAN Saunders Lary NILDA Bray * Is the person blind or does he/she have serious difficulty seeing even when wearing glasses? Answer Date of Assessment Author No 09/08/2024 3:00 PM BELTRAN FreemanLary tobin NILDA Bray * Does this person have serious difficulty walking or climbing stairs? Answer Date of Assessment Author No 09/08/2024 3:00 PM Lary Wade NILDA Bray * Does this person have difficulty dressing or bathing? Answer Date of Assessment Author No 09/08/2024 3:00 PM Lary Wade NILDA Bray * Because of a physical, mental or [...] Entry Date Author No 09/08/2024 3:00 PM BELTRAN Saunders Lary NILDA Bray documented in this encounter Plan of Treatment Upcoming Encounters Date Type Department Care Team (Late st Contact Info) Description 04/09/2025 9:15 AM EDT Office Visit [facility] [address] [place] [address] Jj Motta MD [address] [facility] [address] [place] [address] 04/23/2025 3:00 PM EDT [facility] [address] [place] [address] Summer Garcia MD [address] [place] [address] documented as of this encounter Goals Goal Patient Goal Type Associated Problems Recent Progress Patient-Stated? Author Blood Pressure < 140/90 Blood Pressure 122/80(2024 12:23 PM EDT) No Omid Quezada RN Eat better, exercise, reach an ideal body weight General No Kayli Roca RMA Stay Tobacco Free Lifestyle Kayli Woods RMA documented as of this encounter Visit Diagnoses Diagnosis Strain of lumbar region, initial encounter- Primary Spinal stenosis of lumbar region, unspecified whether neurogenic claudication present Lumbar radiculopathy Thoracic or lumbosacral neuritis or radiculitis, unspecified Lumbar spondylosis Lumbosacral spondylosis without myelopathy Lumbar pain Lumbago Myofascial pain Mylagia and myositis, unspecified Lumbar foraminal stenosis Spinal stenosis, lumbar region, without neurogenic claudication Spondylolisthesis of lumbar region Acquired spondylolisthesis Chronic low back pain, unspecified back pain laterality, unspecified whether sciatica present History of lumbar fusion Degeneration of intervertebral disc of lumbar region with discogenic back pain and lower extremity pain documented in this encounter Care Teams Train Operator Relationship Specialty Start Date End Date Summer Garcia MD [address] [place] [address] PCP - General Family Medicine 08/06/19 Aldo Arrington MD [address] [address] Internal Medicine-Cardiovascular Disease 04/29/24 documented as of this encounter
--- OUTSIDE RECORDS SUMMARY | 2025-04-01 11:48 | XMS_ITS | Encounter Summary ---
Author Organization [facility] Address [address] [place] [address] Care Team Providers Care Steward/Stewardess Night Name Role Phone Summer Garcia MD Primary Care Provider [phone] Aldo Arrington MD Unavailable [phone] Reason for Visit * Reason Onset Date Comments Medication Refill 04/01/2025 Encounter Details Date Type Department Care Team (Late st Contact Info) Description 04/01/2025 Refill [facility] [address] [place], [place] [id number] Marty Park MA Medication Refill Social History Tobacco Use Types Packs/Day Years [...] Refills Last Filled Start Date End Date gabapentin (NEURONTIN) 300 mg Oral CapsuleIndications :Strain of lumbar region, initial encounter,Spinal stenosis of lumbar region, unspecified whether neurogenic claudication present,Lumbar radiculopathy,Lumb ar spondylosis,Lumbar foraminal stenosis,Spondylol isthesis of lumbar region,Chronic low back pain, unspecified back pain laterality, unspecified whether sciatica present,History of lumbar fusion Take 1 Capsule by mouth 2 times daily. 60 Capsule 4 04/01/2025 documented in this encounter Plan of Treatment Upcoming Encounters Date Type Department Care Team (Late st Contact Info) Description 04/09/2025 9:15 AM EDT Office Visit [facility] [address] [place] [place] [id number] Jj Motta MD 8726 [facility] [address] [place] [address] 04/23/2025 3:00 PM EDT Office Visit [facility] [address] [place] [address] Summer Garcia MD [address] [place] [address] documented as of this encounter Goals Goal Patient Goal Type Associated Problems Recent Progress Patient-Stated? Author Blood Pressure < 140/90 Blood Pressure 122/80(2024 12:23 PM EDT) Omid Soto, CYNDIE Eat better, exercise, reach an ideal body weight General No Kayli Roca RMA Stay Tobacco Free Lifestyle No Kayli Roca RMA documented as of this encounter Visit Diagnoses Diagnosis Strain of lumbar region, initial encounter- Primary Spinal stenosis of lumbar region, unspecified whether neurogenic claudication present Lumbar radiculopathy Thoracic or lumbosacral neuritis or radiculitis, unspecified Lumbar spondylosis Lumbosacral spondylosis without myelopathy Lumbar foraminal stenosis Spinal stenosis, lumbar region, without neurogenic claudication Spondylolisthesis of lumbar region Acquired spondylolisthesis Chronic low back pain, unspecified back pain laterality, unspecified whether sciatica present History of lumbar fusion documented in this encounter Care Teams Steward/Stewardess Night Relationship Specialty Start Date End Date Summer Garcia MD [address] [place] [address] PCP - General Family Medicine 08/06/19 Aldo Arrington MD [address] [address] Internal Medicine-Cardiovascular Disease 04/29/24 documented as of this encounter
--- OUTSIDE RECORDS SUMMARY | 2025-04-01 11:48 | XMS_ITS | Encounter Summary ---
Author Organization [facility] Address [address] [place] [address] Care Team Providers Care Rock Splitter Name Role Phone Summer Garcia MD Primary Care Provider [phone] Aldo Arrington MD Unavailable [phone] Reason for Visit * Reason Onset Date Comments Medication Refill 03/31/2025 Encounter Details Date Type Department Care Team (Late st Contact Info) Description 03/31/2025 Refill [facility] [address] [place], [place] [id number] [facility], [place] Medication Refill Social History Tobacco Use Types [...] AM EDT Office Visit Marycarmen Edward [address] [address] Jj Motta MD 8726 [facility] [address] [place] [address] 04/23/2025 3:00 PM EDT Office Visit [facility] [address] [place] [address] Summer Garcia MD [address] [place] [address] documented as of this encounter Goals Goal Patient Goal Type Associated Problems Recent Progress Patient-Stated? Author Blood Pressure < 140/90 Blood Pressure 122/80(2024 12:23 PM EDT) No Omid Quezada, CYNDIE Eat better, exercise, reach an ideal body weight General No Kayli Roca RMA Stay Tobacco Free Lifestyle No Kayli Roca RMA documented as of this encounter Visit Diagnoses Diagnosis Cervical pain- Primary Cervicalgia documented in this encounter Care Teams Rock Splitter Relationship Specialty Start Date End Date Summer Garcia MD [address] [place] [address] PCP - General Family Medicine 08/06/19 Aldo Arrington MD [address] [place] [address] Internal Medicine-Cardiovascular Disease 04/29/24 documented as of this encounter
--- OUTSIDE RECORDS SUMMARY | 2025-04-01 11:48 | XMS_ITS | Encounter Summary ---
Author Organization [facility] Address [address] [place] [address] Care Team Providers Care Organisational Psychologist Name Role Phone Summer Garcia MD Primary Care Provider [phone] Aldo Arrington MD Unavailable [phone] Reason for Visit * Reason Onset Date Comments CM-Medication Assistance 03/31/2025 Encounter Details Date Type Department Care Team (Late st Contact Info) Description 03/31/2025 [place] [address] Lyla Castro PA [address] [place] [address] CM-Medication Assistance Social History Tobacco Use Types Packs/Day Years [...] 09/08/2024 3:00 PM Lary Wade, NILDA * Does this person have serious difficulty walking or climbing stairs? Answer Date of Assessment Author No 09/08/2024 3:00 PM Lary Wade, NILDA * Does this person have difficulty dressing or bathing? Answer Date of Assessment Author No 09/08/2024 3:00 PM Lary Wade, NILDA * Because of a physical, mental or emotional condition, does this person have difficulty doing errands alone such as visiting a doctor's office or shopping? Answer Date of Assessment Author No 09/08/2024 3:00 PM Trinh Wade RMA documented as of this encounter Mental Status * Because of a physical, mental or emotional condition, does this person have serious difficulty concentrating, remembering or making decisions? Answer Entry Date Author No 09/08/2024 3:00 PM Lary Wade, NILDA documented in this encounter Miscellaneous Notes * Telephone Encounter - Marty Park MA - 04/01/2025 10:32 AM EDT I personally re-routed medication request to Dr Motta. Will wait until he is finished with surgery to see if he signs on this medication * Telephone Encounter - Caridad John, Clerical Staff - 04/01/2025 10:10 AM EDT Medication is still not at the pharmacy. Please advise. * Telephone Encounter - Marty Park MA - 03/31/2025 4:20 PM EDT Spoke with patient, explained meds were not called in yet because they require second sig and that Dr Motta will sign off on meds from today so they should be available in the morning to pickup and start. * Telephone Encounter - AddisonRosaline - 03/31/2025 3:35 PM EDTSummary: JAYLA Cooker Soda Patient was seen in the office today and he is at the pharmacy to seed cone picker his medication and they do not have it yet. Patient is wanting to know if this can be done really soon since he at the pharmacy now documented in this encounter Plan of Treatment Upcoming Encounters Date Type Department Care Team (Late st Contact Info) Description 04/09/2025 9:15 AM EDT Office Visit Mary[facility]armen Edward [address] [place] [address] Jj Motta MD 8726 [facility] [address] [place] [address] 04/23/2025 3:00 PM EDT Office Visit [facility] [address] [place] [address] Summer Garcia MD [address] [place] [address] documented as of this encounter Goals Goal Patient Goal Type Associated Problems Recent Progress Patient-Stated? Author Blood Pressure < 140/90 Blood Pressure 122/80(2024 12:23 PM EDT) No Omid Quezada, CYNDIE Eat better, exercise, reach an ideal body weight General No Kayli Roca RMA Stay Tobacco Free Lifestyle No Kayli Roca RMA documented as of this encounter Visit Diagnoses Not on filedocumented in this encounter Care Teams Organisational Psychologist Relationship Specialty Start Date End Date Summer Garcia MD [address] [place] [address] PCP - General Family Medicine 08/06/19 Aldo Arrington MD 3737 [facility] [address] [place] [address] Internal Medicine-Cardiovascular Disease 04/29/24 documented as of this encounter
--- OUTSIDE RECORDS SUMMARY | 2025-04-01 11:48 | XMS_ITS | Clinical Summary ---
Author Organization [facility] Address [address] [address] Phone Care Team Providers Care Strategic Debriefing Specialist Name Role Phone Summer Garcia MD Primary Care Provider [phone] Aldo Arrington MD Unavailable [phone] Allergies No known active allergies Medications lisinopril-hydrochl orothiazide (PRINZIDE;ZESTORETI C) 20-12.5 mg Oral TabletIndications:S inusitis Take 2 Tabs by mouth daily. Dr Aldo Arrington. Active aspirin 81 mg Oral Tablet, Delayed Release (E.C.) Take 81 mg by mouth daily. Active acetaminophen (TYLENOL) 500 mg Oral Tablet Take 1,000 mg by mouth every 6 hours as needed for Pain. Tylenol rapid release Active rosuvastatin (CRESTOR) 10 mg Oral TabletIndications:M ixed hyperlipidemia Take 1 Tablet by mouth nightly. 90 Tablet 3 4 Active ondansetron (ZOFRAN) 4 mg Oral Tablet Take 1 Tablet by mouth every 8 hours as needed for Nausea. 10 Tablet 1 4 Active ibuprofen (ADVIL;MOTRIN) 800 mg Oral Tablet Take 1 Tablet by mouth every 8 hours as needed for Pain. 90 Tablet 2 4 Active azelastine (ASTELIN) 137 mcg (0.1 %) Nasl [place], Non-AerosolIndicati ons:Upper respiratory tract infection, unspecified type 1 [place] in each nostril 2 times daily. Use in each nostril as directed 30 mL 1 5 Active tiZANidine (ZANAFLEX) 4 mg Oral TabletIndications:C hronic low back pain, unspecified back pain laterality, unspecified whether sciatica present TAKE 1 TABLET BY MOUTH AT BEDTIME NEEDED 90 Tablet 5 Active diclofenac (VOLTAREN) 75 mg Oral Tablet, Delayed Release (E.C.)Indications:D egeneration of intervertebral disc of lumbar region with discogenic back pain and lower extremity pain Take 1 Tablet by mouth 2 times daily (with meals). 60 Tablet 5 Active gabapentin (NEURONTIN) 300 mg Oral CapsuleIndications: Strain of lumbar region, initial encounter,Spinal stenosis of lumbar region, unspecified whether neurogenic claudication present,Lumbar radiculopathy,Lumba r spondylosis,Lumbar foraminal stenosis,Spondyloli sthesis of lumbar region,Chronic low back pain, unspecified back pain laterality, unspecified whether sciatica present,History of lumbar fusion Take 1 Capsule by mouth 2 times daily. 60 Capsule 4 5 Active Hospital, Clinic, or Other Facility Administered Medication Ordered Dose Route Frequency Start Date End Date Status ketorolac (TORADOL) injection 60 mgIndications:Degeneration of intervertebral disc of lumbar region with discogenic back pain and lower extremity pain 60 mg IM ONCE 03/19/2025 03/19/2025 Ende d Active Problems Problem Noted Date Diagnosed Date Sprain of acromioclavicular joint, left, initial encounter 04/07/2024 Acute medial meniscus tear of right knee 024 Carpal tunnel syndrome of right wrist 06/11/2023 Cubital tunnel syndrome on right 06/11/2023 History of prostate cancer 10/07/2020 Overview (04/12/2021): Dx SEP in jul 2020. S/p RALRP october 2020 - keysha 3+4, margins negative, LN negative. Watertight anastomosis, great nerve spare Followed by Dr. Yessenia Mendoza [facility] Assessment & Plan (03/19/2025 2:22 PM EDT): Orders: PROSTATE SPECIFIC ANTIGEN (TUMOR MARKER); Future History of colon polyps 04/24/2018 Overview (04/19/2022): Colonoscopy 2020, q5y Former smoker 04/24/2018 Overview (04/24/2018): Quit 2005 20 pack years H/O malignant carcinoid tumor 04/24/2018 Overview (04/12/2021): Resected surgically 2014 Follow up sigmoidoscopy showed no residual lesion Followed by GI Dr. Tovar. Mixed hyperlipidemia Overview (04/19/2022): On statin Assessment & Plan (03/19/2025 2:22 PM EDT): Orders: COMPREHENSIVE METABOLIC PANEL; Future LIPID PANEL REFLEX; Future Essential hypertension Overview (04/29/2024): On ACEi/HCTZ = per Dr. Arrington (cardiology) Assessment & Plan (03/19/2025 2:22 PM EDT): Orders: COMPREHENSIVE METABOLIC PANEL; Future Obesity Chronic back pain Overview (04/24/2018): Has followed with chiropracter in past Takes zanaflex for flares No recent imaging Resolved Problems Problem Noted Date Diagnosed Date Resolved Date Rectal carcinoid tumor 03/15/201504/12 Overview (04/12/2021): S/p resection/cautery 2014 GI referral placed for follow up [address] Tovar. Rectal neoplasm 02/16/2015 03/15/2015 Low back pain syndrome 07/23/201204/12 Encounters Date Type Department Care Team Description 04/01/2025 Refill [facility] [address] [place] [address] Marty Park MA Medication Refill 03/31/2025 1:45 PM EDT Office Visit [facility] [address] [place] [address] Lyla Castro PA Strain of lumbar region, initial encounter (Primary [...] discogenic back pain and lower extremity pain 03/31/2025 Telephone [facility] [address] [address] Lyla Castro PA CM-Medication Assistance 03/31/2025 Refill [facility] [address] [address] Monse Baldwin MA Medication Refill 03/25/2025 2:30 PM EDT Ancillary Procedure [facility] MRI [address] [place], [place] [address] [address] Lyla Castro PA Lumbar pain 03/24/2025 Telephone [facility] [address] [address] Marty Park MA Reschedule 03/19/2025 12:30 PM EDT Office Visit [facility] [address] [place], [place] [address] [address] Summer Garcia MD Degeneration of intervertebral disc of lumbar region with discogenic back pain and lower extremity pain (Primary Dx); Opioid dependence in remission (HCC); History of prostate cancer; IGT (impaired glucose tolerance); Screening for thyroid disorder; Vitamin D deficiency; Screening for deficiency anemia; Mixed hyperlipidemia; Essential hypertension 03/18/[address] [facility] [address] [place] [address] Summer Garcia MD Appointment Needed (Short term disability); Follow Up (Appt Request ) 03/17/2025 9:45 AM EDT [facility] [address] [address] Lyla Castro PA Lumbar pain (Primary Dx); Lumbar radiculopathy; Degeneration of intervertebral disc of lumbar region with discogenic back pain and lower extremity pain; Lumbar spondylosis; Myofascial pain; History of lumbar fusion; Sciatica, unspecified laterality 03/17/2025 9:25 AM EDT Ancillary Procedure [facility] [address] [place] [address] Lyla Castro PA Lumbar pain 02/26/[address] [facility] [address] [place] [address] Cindy Craig RMA Paperwork/forms 02/25/2025 11:00 AM EDT Office Visit [facility] [address] [place] [address] Tiffanie Barroso PA-C Degeneration of intervertebral disc of lumbar region with discogenic back pain and lower extremity pain (Primary Dx); Acute bilateral low back pain with bilateral sciatica; Chronic low back pain, unspecified back pain laterality, unspecified whether sciatica present from Last 3 Months Immunizations Immunization Administration Dates Next Due DTaP, Unspecified Formulation 08/25/1967, 964,1964 Hep A/Hep B 11/04/2012,06/01/2011,05/26/2011 Influenza Seasonal Injectable PF 04/29/2024 Influenza Vaccine, Unspecifi ed Formulation 06/03/2020,08/28/2018,08/06/2017,2011 Influenza, Injectable, MDCK, PF, Quadrivalent 05/21/2020 MMR 04/01/1973,10/20/1967 Pfizer SARS-CoV-2 Vaccine 12 + Yrs (Purple Cap) 03/24/2021 Polio, Unspecified Formulation 0,08/25/1967,1964,1963 Rubella 01/23/1970 Td, Unspecified Formulation 01/18/1997, 0 Tdap 04/25/2023,05/26/2011 Typhoid, Unspecified Formulation 05/26/2011 Zoster Recombinant 02/24/2019,11/06/2018 Surgical History Surgery Date Site/Laterality Comments SPINE SURGERY 08/20/2004 - 08/19/2005 Dr. Juan Manuel Thomas (L5-S1) / extensive surgery CHOLECYSTECTOMY COLONOSCOPY 06/20/2020 - 07/19/2020 q5y KIDNEY STONE SURGERY stone removed SIGMOIDOSCOPY 03/17/2015 N/A FLEXIBLE SIGMOIDOSCOPY with tattooing, no sedation, per Dr Tovar did not put in charges, discussed with Bertha; Surgeon: Max Tovar MD; Location: ED ENDOSCOPY; Service: Endoscopy PROSTATE SURGERY 10/18/2020 - 11/17/2020 prostatectomy CARPAL TUNNEL RELEASE 06/14/2023 Hand/Wrist/Right RIGHT CARPAL TUNNEL RELEASE AND CUBITAL TUNNEL RELEASE WITH ANTERIOR TRANSPOSITION; Surgeon: Connor Sparks MD; Location: [facility]; Service: Orthopedics KNEE ARTHROSCOPY 04/04/2024 Knee/Right RIGHT KNEE ARTHROSCOPY, PARTIAL MEDIAL MENISCECTOMY, PARTIAL LATERAL MENISCECTOMY; Surgeon: Mark Craven MD; Location: [facility]; Service: Orthopedics SHOULDER SURGERY 05/08/2024 Shoulder/Left Left Open Shoulder Coraco-Clavicular Ligament Reconstruction with Allograft; Surgeon: Conor Mckeon MD; Location: [facility]; Service: Orthopedics Medical devices from this surgery are in the Medical Devices section. Medical History Medical History Date Comments Chronic back pain Hyperlipidemia HTN (hypertension) Obesity Former smoker Carcinoid tumor of colon (HCC) 2014 Colon cancer (HCC) H/O malignant carcinoid tumor 04/24/2018 Re sected surgically 2014 Follow up sigmoidoscopy showed no residual lesion Prostate disorder Family History Medical History Relation Name Comments Cancer Father prostate, lung metastatic to bone Hypertension Father Colon Cancer Maternal Grandfather Hypertension Son Anesth Problems Neg Hx Colon Polyps Neg Hx Diabetes Neg Hx Esophageal Cancer Neg Hx High Cholesterol Neg Hx Liver Cancer Neg Hx Liver Disease Neg Hx Rectal Cancer Neg Hx Stomach Cancer Neg Hx Relation Name Status Comments Father Maternal Grandfather Mother Alive Son Social History Tobacco Use Types Packs/Day Years [...] on file Sexual Orientation Not on file Obstetrics History Last Filed Vital Signs Vital Sign Reading Time Taken Comments Blood Pressure 122/80 03/19/2025 12:23 PM EDT Pulse 98 03/19/2025 12:23 PM EDT Temperature 36.3 C (97.3 F) 03/19/2025 12:23 PM EDT Respiratory Rate 16 02/25/2025 11:13 AM EDT Oxygen Saturation 99% 03/19/2025 12:23 PM EDT Inhaled Oxygen Concentration - - Weight 97.1 kg (214 lb) 03/31/2025 1:50 PM EDT Height 177.8 cm (5' 10 ) 03/31/2025 1:50 PM EDT Body Mass Index 30.71 03/31/2025 1:50 PM EDT Plan of Treatment Upcoming Encounters Date Type Department Care Team (Late st Contact Info) Description 04/09/2025 9:15 AM EDT Office Visit Marycarmen Edward [address] [place] [address] Jj Motta MD 8726 [facility] [address] [place] [address] 04/23/2025 3:00 PM EDT Office Visit [facility] [address] [place] [address] Summer Garcia MD [address] [place] [address] Health Maintenance Due Date Last Done Comments Cologuard 2009 FIT 2009 Virtual Colonography 2009 Pneumococcal Vaccine 50+ (1 of 1 - PCV) 2014 Sigmoidoscopy 03/17/2020 03/17/2015, 03/17/2015 COVID-19 Vaccine ( season) 2024 03/24/2021, 03/02/2021 Influenza Vaccine (#1) 2025 , 06/03/2020, 05/21/2020, Additional history exists Annual Wellness Exam 04/29/2025 04/29/2024, 04/25/2023, 04/12/2020 Colon Cancer Screening 06/28/2025 Colonoscopy 06/28/2025 06/28/2020, 01/12/2015 DTaP/TDaP/Td (7 - Td or Tdap) 04/25/2033 04/25/2023, 05/26/2011, 01/18/1997, Additional history exists Hepatitis B Vaccine Discontinued 11/04/2012, 06/01/2011, 05/26/2011 Hepatitis C Screening Completed 04/27/2018 Zoster Completed 02/24/2019, 11/06/2018 Meningococcal B Vaccine Aged Out No l onger eligible based on patient's age to complete this topic Goals Goal Patient Goal Type Associated Problems Recent Progress Patient-Stated? Author Blood Pressure < 140/90 Blood Pressure 122/80(2024 12:23 PM EDT) No Omid Quezada RN Eat better, exercise, reach an ideal body weight General No Kayli Roca RMA Stay Tobacco Free Lifestyle No Kayli Roca RMA Medical Devices Implanted Type Area Tool Design Checker Device Identifier Shelf Expiration Date Model / Serial / Lot [employer]odesis Screw, Peek, 5.5 Mm X 10 Mm - [id number] Implanted:Qty: 1 on 05/08/2024 by Conor Mckeon MD at [facility] Left: Shoulder ARTHREX 08/19/2028 [id number]- 10 / / [id number] Tenodesis Screw, Peek, 5.5 Mm X 10 Mm - [id number] Implanted:Qty: 1 on 05/08/2024 by Conor Mckeon MD at [facility] Left: Shoulder ARTHREX 04/19/2027 [id number]- 10 / / [id number] Procedures Procedure Name Priority Date/Time Associated Diagnosis Comments MRI LUMBAR SPINE WO CONTRAST Routine 03/25/2025 2:57 PM EDT Lumbar pain XR LUMBAR SPINE AP LATERAL FLEXION AND EXTENSION Routine 03/17/2025 9:29 AM EDT Lumbar pain [facility] COLONOSCOPY Routine 06/28/2020 7:00 AM EST HCV ANTIBODY SCREEN W/ REFLEX Routine 04/27/2018 10:30 AM EDT Need for hepatitis C screening test [facility] SIGMOIDOSCOPY Routine 03/17/2015 9: 15 AM EDT from Last 3 Months or Most Recently Relevant to Health Maintenance Results * MRI LUMBAR SPINE WO CONTRAST (03/25/2025 2:57 PM EDT) Narrative [facility] - 03/25/2025 2:57 PM EDT Please see the scanned MRI report associated with this order on the Imaging tab of the patient's chart. us Lyla STEVENS MRI ORDERABLES Final Result Performing Organization Address [facility] Co de Phone Number [facility] * XR LUMBAR SPINE AP LATERAL FLEXION AND EXTENSION (03/17/2025 9:29 AM EDT) Narrative Miranda Zimmer - 03/17/2025 9:29 AM EDT Please see physician's note from office encounter for x-ray imaging result us Lyla STEVENS DIAGNOSTIC IMAGING ORDERABL ES Final Result * [facility] COLONOSCOPY (06/28/2020 7:00 AM EST) 06/28/2020 7:00 AM EST Impressions [facility] - 06/28/2020 7:43 AM EST The examination was negative from a standpoint of screening. . Diverticulosis of the the left side of the colon. Tattoo in rectum. Internal hemorrhoids. Plan: Colonoscopy in 5 years due to previous history of polyps. This section is an excerpt of the full report. Max Tovar MD GI PROCEDURE ORDERABLES Final R esult Performing Organization Address City/[facility] Co de Phone Number [facility] [address] [place] [address] * HEPATITIS C ANTIBODY - SCREENING (04/27/2018 10:30 AM EDT) Hep C Ab Non-Reactiv e Non-Reacti ve 04/27/2018 1:09 PM EDT [employer] Blood Venipuncture / Unknown 04/27/2018 10:30 AM EDT 04/27/2018 10:30 AM EDT us Vickie Stringer MD HEMATOLOGY ORDERABLES Final Result Performing Organization Address City/[facility]/ZIP Co de Phone Number [facility] [employer] [address] [place] [address], [place] [address] * [facility] SIGMOIDOSCOPY (03/17/2015 9:15 AM EDT) 03/17/2015 9:15 AM EDT Impressions [facility] - 03/17/2015 10:07 AM EDT Tattoo and endoclips placed to aniya underling submucosal lesion. . Plan: The patient is referred to a General Surgeon- Dr. Diez. This section is an excerpt of the full report. us Max Tovar MD GI PROCEDURE ORDERABLES Final R esult Performing Organization Address [facility] [place] [address] from Last 3 Months or Most Recently Relevant to Health Maintenance Insurance [employer] [facility] [employer] CLAIMS AA SUREST SUREST Care Teams Strategic Debriefing Specialist Relationship Specialty Start Date End Date Summer Garcia MD [address] [place] [address] PCP - General Family Medicine 08/06/19 Aldo Arrington MD [address] [address] Internal Medicine-Cardiovascular Disease 04/29/24
--- OUTSIDE RECORDS SUMMARY | 2025-04-01 11:49 | XMS_ITS | Encounter Summary ---
Author Organization [facility] Address [address] [place] [address] Care Team Providers Care Foam Molder Name Role Phone Summer Garcia MD Primary Care Provider [phone] Aldo Arrington MD Unavailable [phone] Reason for Visit * Reason Onset Date Comments Reschedule 03/24/2025 Encounter Details Date Type Department Care Team (Late st Contact Info) Description 03/24/2025 Telephone [facility] [address] [place] [address] [id number] Marty Park MA Reschedule Social History Tobacco Use Types Packs/Day Years [...] of Assessment Author No 09/08/2024 3:00 PM Layr Wade RMA * Because of a physical, [...] Lary Wade RMA documented in this encounter Miscellaneous Notes * Telephone Encounter - Marty Park MA - 03/24/2025 3:50 PM EDT LVMTCB FOR PATIENT: HYACINTH HAS DR APPT SATURDAY 03/31, LAST APPT IS 2:15 FOR THAT DAY. HE NEEDS RESCHEDULED,CAN BE MOVED TO A POST OP SPOT THAT DAY IF NEED BE documented in this encounter Plan of Treatment Upcoming Encounters Date Type Department Care Team (Late st Contact Info) Description 04/09/2025 9:15 AM EDT Office Visit Marycarmen Edward [address] [address] Jj Motta MD 8726 [facility] [address] [place] [address] 04/23/2025 3:00 PM EDT Office Visit [facility] [address] [place] [address] Summer Garcia MD [address] [place] [address] documented as of this encounter [...] on filedocumented in this encounter Care Teams Foam Molder Relationship Specialty Start Date End Date Summer Garcia MD 2626 [place] [address] PCP - General Family Medicine 08/06/19 Aldo Arrington MD [address] [address] Internal Medicine-Cardiovascular Disease 04/29/24 documented as of this encounter
--- OUTSIDE RECORDS SUMMARY | 2025-04-01 11:49 | XMS_ITS | Clinical Summary ---
Author Organization [facility] Address [address] [place] [address] Care Team Providers Care Foundry Manager Name Role Phone Jose Ramon Mendoza MD Unavailable [phone] Galina Baxter RN Unavailable [phone] Josselin Skelton LPN Unavailable [phone] Pam Zambrano RN Unavailable [phone] Gaetano Wild RN Unavailable Summer Garcia Primary Care Provider [phone] Allergies No known active allergies Medications lisinopriL-hydr ochlorothiazide (ZESTORETIC) 20-12.5 mg per tablet Take 2 Tabs by mouth daily. Active rosuvastatin (CRESTOR) 5 mg Tablet Take 5 mg by mouth every evening. 1 Active aspirin 81 mg Tablet, Delayed Release (E.C.) Take 81 mg by mouth daily. Active multivit,ther.w -iron,hematinic (BOCGA-A-YDMG PO) Take 1 Tab by mouth daily. Active Tizanidine 4 mg Capsule Take 4 mg by mouth daily as needed. Active tadalafiL (Cialis) 20 mg Tablet Take 1 Tablet (20 mg total) by mouth as needed for Erectile Dysfunction. 30 Tablet 3 1 Active Additional Information Patient not taking.Reported on 12/30/2021 sildenafiL (VIAGRA) 100 mg Tablet Take 1 Tablet (100 mg) by mouth daily as needed for Erectile Dysfunction. 10 Tablet 3 2 Active Active Problems Problem Noted Date Diagnosed Date Erectile dysfunction due to arterial disease 10/2021 Overview (10/20/2021): Added automatically from request for surgery [id number] Peyronie disease 10/20/2021 Overview (10/20/2021): Added automatically from request for surgery [id number] Obesity (BMI 30-39.9) 10/29/2020 Prostate cancer 10/07/2020 Overview (10/07/2020): Added automatically from request for surgery [id number] Family History Medical History Relation Name Comments Anesthesia Complications Neg Hx Heart Problems Neg Hx Social History Tobacco Use Types Packs/Day Years Used Date Smoking Tobacco: Former Cigarettes Q uit: 10/21/2003 Smokeless Tobacco: Never Alcohol Use Standard Drinks/Week Comments Yes 0 (1 standard drink = 0.6 oz pur e alcohol) ~5/week Sex and Gender Information Value Date Recorded Sex Assigned at Not on file Legal Sex Male 1:56 PM EDT Gender Identity Not on file Sexual Orientation Not on file Last Filed Vital Signs Vital Sign Reading Time Taken Comments Blood Pressure 143/66 12/30/2021 10:37 AM EDT Pulse 61 12/30/2021 10:37 AM EDT Temperature 36.2 C (97.2 F) 12/30/2021 10:15 AM EDT Respiratory Rate 16 12/30/2021 10:37 AM EDT Oxygen Saturation 97% 12/30/2021 10:37 AM EDT Inhaled Oxygen Concentration - - Weight 96 kg (211 lb 10.3 oz) 12/30/2021 6:19 AM EDT Height 177.8 cm (5' 10 ) 12/30/2021 6:19 AM EDT Body Mass Index 30.37 12/30/2021 6:19 AM EDT Plan of Treatment Health Maintenance Due Date Last Done Comments Cologuard 1964 Colonoscopy 1964 Colorectal Cancer Screening 1964 FIT 1964 Lipid Monitoring 1981 Hepatitis C Virus (HCV) Screening 1985 Pneumococcal Vaccine: 50+ Ye ars (1 of 1 - PCV) 2014 Zoster-RZV(Shingrix) (1 of 2) 2014 COVID-19 Vaccine (1 - 2023- season) 2024 Depression Screening 08/20/2024 Influenza Vaccination (#1) 2025 Tetanus Vaccination (Every 10 Years) 04/25/2033 090 01/2023, 05/26/2011 RSV Vaccines (1 - 1-dose 75+ series) 2039 Insurance Advance Directives For more information, please contact: [phone] * Full Code (Latest Code Status on File) Date Activated Date Inactivated Comments 10/29/2020 11:44 AM 10/19/2021 6:46 AM No automated chest compression devices for VAD Patients Care Teams Foundry Manager Relationship Specialty Start Date End Date Summer Garcia [address] [place] [address] PCP - General 06/20/21 Jose Ramon Mendoza MD 2122 [facility]. [address] [address] Urology 10/07/20 Galina Baxter RN [address] [place] [address] Registered Nurse 10/07/20 Josselin Skelton LPN [address] [place] [address] CONTROL SYSTEMS SPECIALIST 11/01/20 Pam Zambrano RN [address] [place], [place] 590[address] Oncology Nurse Navigator 12/20/20 Gaetano Wild RN [address] [place], [place] 955259 Registered Nurse Hematology and Oncology 06/09/21
--- OUTSIDE RECORDS SUMMARY | 2025-04-01 11:49 | XMS_ITS | Encounter Summary ---
Author Organization [facility] Address [address] [place] [address] Care Team Providers Care Art Glass Designer Name Role Phone Rufus Church MD Primary Care Provider [phone] Jose Ramon Mendoza MD Unavailable [phone] Galina Baxter RN Unavailable [phone] Josselin Skelton LPN Unavailable [phone] Pam Zambrano RN Unavailable [phone] Gaetano Wild RN Unavailable Summer Garcia Primary Care Provider [phone] Encounter Details Date Type Department Care Team (Latest Contact Info) Description 10/07/2020 Preop Surgical Orders [facility] - [facility]rology, [facility] [address] [place] [address] Galina Baxter, RN [address] [place] [address] [id number] Prostate cancer (Primary Dx) Social History Tobacco Use Types Packs/Day Years Used Date Smoking Tobacco: Never Smokeless Tobacco: Never Sex and Gender Information Value Date Recorded Sex Assigned at Not on file Legal Sex Male 1:56 PM EDT Gender Identity Not on file Sexual Orientation Not on file COVID-19 Exposure Response Date Recorded In the last month, have you been in contact with someone who was confirmed or suspected to have Coronavirus / COVID-19? No / Unsure 10/07/2020 10:20 AM EST documented as of this encounter Plan of Treatment Not on file documented as of this encounter Results * BASIC METABOLIC PANEL (BMP=EP1) (10/22/2020 5:25 PM EST) Sodium 142 135 - 146 mmol/L [facility] Potassium 3.8 3.5 - 5.1 mmol/L [facility] Chloride 107 98 - 110 mmol/L [facility] CO2 22 22 - 29 mmol/L [facility] Anion Gap 13 5 - 13 mmol/L [facility] Comment:Anion gap calculatio n does not include potassium (K+) value. BUN 22 7 - 25 mg/dL [facility] Creatinine 1.23 0.50 - 1.30 mg/dL [facility] Glucose 77 71 - 99 mg/dL [facility] GFR MDRD Af Amer 74 See Note [facility] Comment: GFR is estimated using Creatinine, age, gender and race. Patient's values should be interpreted as a trend. Between 30 and 90 ml/min/1.73m2, clinical correlation is needed. For additional information: www.kidney.org Calcium 8.9 8.4 - 10.5 mg/dL [facility] GFR MDRD Non Af Amer 61 See Note [facility] Comment: GFR is estimated using Creatinine, age, gender and race. Patient's values should be interpreted as a trend. Between 30 and 90 ml/min/1.73m2, clinical correlation is needed. For additional information: www.kidney.org BUN/Creatinine Ratio 18 [facility] Plasma 10/22/2020 5:25 PM EST 10/22/2020 5:25 PM EST us Jose Ramon Mendoza MD CHEMISTRY ORDERABLES Final Res ult [facility] [address] [place] [address], [facility] * APTT (10/22/2020 5:25 PM EST) PTT 27.6 23.1 - 37.6 seconds [facility] EX[facility] Comment: Effective 08/18/2020, there is a new lot number of PTT reagent. There are no changes to the reference range or critical values. Effective 08/18/2020, there is a new lot number of PTT reagent. There are no changes to the reference range or critical values. Plasma 10/22/2020 5:25 PM EST 10/22/2020 5:25 PM EST Jose Ramon Mendoza MD HEMATOLOGY ORDERABLES Final Re sult Performing Organization Address [facility] de Phone Number [facility] EXTER[facility] [address] [place] [address] * PT (PRO TIME INCLUDES INR) (10/22/2020 5:25 PM EST) Protime 12.0 10.0 - 13.6 seconds [facility] EX[facility] INR 1.0 0.9 - 1.1 [facility] LEAD FURNACE OPER[facility] Comment: RECOMMENDED THERAPEUTIC RANGES USING INR : Stable Oral Anticoagulant Therapy: 2.0 - 3.0 Mechanical Prosthetic Heart Valve: 2.5 - 3.5 Recurrent Acute Myocardial Infarction: 2.5 - 3.5 Plasma 10/22/2020 5:25 PM EST 10/22/2020 5:25 PM EST Jose Ramon Mendoza MD HEMATOLOGY ORDERABLES Final Re sult Performing Organization Address [facility] de Phone Number [facility] EX[facility] [address] * TYPE AND SCREEN (10/22/2020 5:18 PM EST) ABORh O [facility] LEAD FURNACE OPERATOR [facility] Rh Type Positive [facility]AD [facility]URNACE OPER[facility] Blood 10/22/2020 5:18 PM EST 10/22/2020 5:17 PM EST Jose Ramon Mendoza MD BLOOD BANK TEST ORDERABLES Fin al Result Performing Organization Address [facility]/State/ZIP Co de Phone Number [facility] [address] * (ABNORMAL) CBC (COMPLETE BLOOD COUNT) (10/22/2020 5:18 PM EST) Pathologist [facility] WBC 12.7(H) 3.8 - 10.8 10*3/uL [facility] RBC 4.41 4.20 - 5.80 10*6/uL [facility] Hemoglobin 13.2 13.2 - 17.1 g/dL [facility] Hematocrit Blood 40.4 38.5 - 50.0 % [facility] MCV 91.5 80.0 - 100.0 fL [facility] MCH 29.9 27.0 - 33.0 pg [facility] MCHC 32.7 32.0 - 36.0 g/dL [facility] RDW 13.4 11.0 - 15.0 % [facility] Platelets 230 140 - 400 10*3/uL [facility] MPV 9.6 7.5 - 11.5 fL [facility] Whole Blood 10/22/2020 5:18 PM EST 10/22/2020 5:17 PM EST us Jose Ramon Mendoza MD HEMATOLOGY ORDERABLES Final Re sult [facility] [address] * COVID19 PCR OP (10/22/2020 2:36 PM EST) Pathologist [facility] SCRCOVID Not Detected [facility] EXT ERNAL [facility] Comment: This sample has been tested with the SARS-CoV-2 ELITe MGB Assay and is pending Emergency Use Authorization (EUA) by the FDA. Approval has not yet been granted. This assay has been validated by the [facility] laboratory. This test is a qualitative assay using real time PCR technology by an automated method. Fact sheets can be found at https://www.fda.gov/MedicalDevices/Safety/EmergencySituations/fbb904470.htm Nares Swab (Nares) 10/22/2020 2:36 PM EST 10/22/2020 6:12 PM EST Jose Ramon Mendoza MD NON-CULTURE MICROBIOLOGY Final Result [facility] [address] [place] [address], [facility] documented in this encounter Visit Diagnoses Diagnosis Prostate cancer (CMS/HCC)- Primary Malignant neoplasm of prostate documented in this encounter Care Teams Art Glass Designer Relationship Specialty Start Date End Date Rufus Church MD PCP - General Cardiology 11/19/15 06/19/21 Summer Garcia [address] [place] [address] PCP - General 06/20/21 Jose Ramon Mendoza MD [address] [place] [address] Urology 10/07/20 Galina Baxter RN [address] [place] [address] Registered Nurse 10/07/20 Josselin Skelton LPN [address] [place] [address] MONITORING AND EVALUATION ADVISOR 11/01/20 Pam Zambrano RN [address] [place] [address] Oncology Nurse Navigator 12/20/20 Gaetano Wild RN [address] [place] [address] Registered Nurse Hematology and Oncology 06/09/21 documented as of this encounter
--- OUTSIDE RECORDS SUMMARY | 2025-04-01 11:49 | XMS_ITS | Encounter Summary ---
Author Organization [place] [address] Care Team Providers Care Farm Technician Name Role Phone Summer Garcia MD Primary Care Provider [phone] Aldo Arrington MD Unavailable [phone] Reason for Visit * Reason Onset Date Comments Appointment Needed 03/18/2025 Short term di sability Follow Up 03/18/2025 Appt Request Encounter Details Date Type Department Care Team (Late st Contact Info) Description 03/18/2025 Telephone [facility] [address] [place] [address] Summer Garcia MD [address] [place] [address] Appointment Needed (Short term disability); Follow Up (Appt Request ) Social History Tobacco Use Types Packs/Day Years [...] 09/08/2024 3:00 PM Lary Wade, NILDA * Is the person blind or [...] encounter Miscellaneous Notes * Telephone Encounter - Deysi Criag CCMA - 03/18/2025 11:28 AM EDT pt scheduled for 03/[address] Garcia. * Telephone Encounter - Keya Schulz - 03/18/2025 10:52 AM EDT Select the most appropriate reason for this telephone message: Follow Up Follow Up Who is Calling:Patient What is the caller following up on (make sure to reference any prior documentation/encounter): Patient calling again requesting an appt for today. Please advise. Patient will take whatever time he can get. Further follow-up needed?:Yes Return Method of Communication:Phone call Additional Information:Thank you. * Telephone Encounter - Tasha Low Clerical Staff - 03/18/2025 8:19 AM EDT Shivani, Patient wants to see Dr. Garcia Please advise. * Telephone Encounter - Sadia House - 03/18/2025 8:08 AM EDT Select the most appropriate reason for this telephone message: Appointment Needed Appointment Requested By: Patient Provider Preference: PCP Only Type of Appt Needed: Office Visit Detailed Reason for Appt: discuss STD for back x ongoing/ Requested Timeframe: Other deborah Reason Scheduling Assistance is Needed: -no appts available with provider preference in time frame needed Return Method of Communication: Phone Call Additional Information: Pt asking for a call back and message in [employer] documented in this encounter Plan of Treatment Upcoming Encounters Date Type Department Care Team (Late st Contact Info) Description 04/09/2025 9:15 AM EDT Office Visit Marycarmen Edward [address] [place] [address] Jj Motta MD 8726 [facility] [address] [place] [address] 04/23/2025 3:00 PM EDT Office Visit [facility] [address] [place] [address] Summer Garcia MD [address] [place] [address] documented as of this encounter Goals Goal [...] on filedocumented in this encounter Care Teams Farm Technician Relationship Specialty Start Date End Date Summer Garcia MD [address] [place] [address] PCP - General Family Medicine 08/06/19 Aldo Arrington MD [address] [address] Internal Medicine-Cardiovascular Disease 04/29/24 documented as of this encounter
--- OUTSIDE RECORDS SUMMARY | 2025-04-01 11:49 | XMS_ITS | Encounter Summary ---
Author Organization [facility] Address [address] [place] [address] Care Team Providers Care Technical Inspector Name Role Phone Jose Ramon Mendoza MD Unavailable [phone] Galina Baxter RN Unavailable [phone] Josselin Skelton LPN Unavailable [phone] Pam Zambrano RN Unavailable [phone] Gaetano Wild RN Unavailable Summer Garcia Primary Care Provider [phone] Encounter Details Date Type Department Care Team (Latest Contact Info) Description 10/20/2021 Preop Surgical Orders [facility] Physicians - Urology, [facility] [address] [place] [address] [place] [phone] Galina Baxter, RN [address] [place], [place] [id number] Peyronie disease (Primary Dx); Erectile dysfunction due to arterial disease; Prostate cancer Social History Tobacco Use Types Packs/Day Years [...] have Coronavirus / COVID-19? No / Unsure 10/19/2021 6:46 AM EST documented as of this encounter Functional Status * Are you blind or do you have difficulty seeing, even when wearing glasses? Answer Date of Assessment Author No 10/29/2020 5:37 PM Kaylynn Becerra RN * Do you have serious difficulty walking or climbing stairs? Answer Date of Assessment Author No 10/29/2020 5:37 PM Kaylynn Becerra RN * Do you have difficulty dressing or bathing? Answer Date of Assessment Author No 10/29/2020 5:37 PM Kaylynn Becerra RN * Because of a physical, mental, or emotional condition, do you have difficulty doing errands alone such as a visiting a doctor's office or shopping? Answer Date of Assessment Author No 10/29/2020 5:37 PM Kaylynn Becerra RN documented as of this encounter Mental Status * Because of a physical, mental, or emotional condition, do you have serious difficulty concentrating, remembering, or making decisions? Answer Entry Date Author No 10/29/2020 5:37 PM Kaylynn Becerra RN documented in this encounter Plan of Treatment Not on file documented as of this encounter Visit Diagnoses Diagnosis Peyronie disease- Primary Peyronie's disease Erectile dysfunction due to arterial disease Prostate cancer ([facility]/HCC) Malignant neoplasm of prostate documented in this encounter Care Teams Technical Inspector Relationship Specialty Start Date End Date Summer Garcia [address] [place] [address] PCP - General 06/20/21 Jose Ramon Mendoza MD 2[address] [facility] [address] [place] [address] Urology 10/07/20 Galina Baxter RN [address] [place] [address] Registered Nurse 10/07/20 Josselin Skelton LPN [address] [place] [address] SENIOR TECHNICAL ANALYST 11/01/20 Pam Zambrano RN [address] [place] [address] Oncology Nurse Navigator 12/20/20 Gaetano Wild, RN [address] [place] [address] Registered Nurse Hematology and Oncology 06/09/21 documented as of this encounter
--- OUTSIDE RECORDS SUMMARY | 2025-04-01 11:49 | XMS_ITS | Encounter Summary ---
Author Organization [facility] [place] [address] Care Team Providers Care Maintenance Mechanic 2Nd Shift Name Role Phone Summer Garcia MD Primary Care Provider [phone] Aldo Arrington MD Unavailable [phone] Reason for Visit * Reason Onset Date Comments Paperwork/forms 02/26/2025 Encounter Details Date Type Department Care Team (Late st Contact Info) Description 02/26/2025 Telephone [facility] [address] [place] [address] Cindy Craig RMA Paperwork/forms Social History Tobacco Use Types Packs/Day Years [...] encounter Miscellaneous Notes * Telephone Encounter - Bety Calles LPN - 02/26/2025 3:56 PM EDT form at clean up person for pt to peanut picker * Telephone Encounter - Cindy Craig RMA - 02/26/2025 2:43 PM EDT Pt dropped off a [employer] Medical license plate form Gave to Gant[employer] documented in this encounter Plan of Treatment Upcoming Encounters Date Type Department Care Team (Late st Contact Info) Description 04/09/2025 9:15 AM EDT Office Visit Marycarmen Edward [address] [place] [id number] Jj Motta MD 8726 [facility] [address] [place] [id number] 04/23/2025 3:00 PM EDT Office Visit [facility] [address] [place] [address] Summer Garcia MD [address] [place] [address] documented as of this encounter [...] on filedocumented in this encounter Care Teams Maintenance Mechanic 2Nd Shift Relationship Specialty Start Date End Date Summer Garcia MD [address] [place] [address] PCP - General Family Medicine 08/06/19 Aldo Arrington MD [address] [place] [address] Internal Medicine-Cardiovascular Disease 04/29/24 documented as of this encounter
--- OUTSIDE RECORDS SUMMARY | 2025-04-01 11:49 | XMS_ITS | Encounter Summary ---
Author Organization [place] [address] Care Team Providers Care Divemaster Name Role Phone Summer Garcia MD Primary Care Provider [phone] Aldo Arrington MD Unavailable [phone] Encounter Details Date Type Department Care Team (Late st Contact Info) Description 01/12/2015 Orders Only [facility] 6[address] [facility] Building [address] [place] [address] Max Tovar MD Social History Tobacco Use Types Packs/Day Years Used Date Smoking Tobacco: Former Cigarettes 1 20 0 08/20/1984 - 08/20/2004 Smokeless Tobacco: Never Alcohol Use Standard Drinks/Week Comments Yes 4.2 (1 standard drink = 0.6 oz p ure alcohol) Sex and Gender Information Value Date Recorded Sex Assigned at Not on file Legal Sex Male 6:59 PM EDT Gender Identity Not on file Sexual Orientation Not on file documented as of this encounter Plan of Treatment Upcoming Encounters Date Type Department Care Team (Late st Contact Info) Description 04/09/2025 9:15 AM EDT Office Visit Marycarmen Edward [address] [place] [address] Jj Motta MD 8726 [facility] [address] [place] [id number] 04/23/2025 3:00 PM EDT Office Visit [facility] [address] [place] [address] Summer Garcia MD [address] [place] [address] documented as of this encounter Procedures Procedure Name Priority Date/Time Associated Diagnosis Comments ED COLONOSCOPY Routine 01/12/2015 7:30 AM EDT documented in this encounter Results * ED COLONOSCOPY (01/12/2015 7:30 AM EDT) 01/12/2015 7:30 AM EDT Impressions [facility] - 01/12/2015 7:55 AM EDT Polyps (8 mm to 10 mm) in the cecum. (Polypectomy). Polyp (8 mm) in the ascending colon. (Polypectomy). Polyp (15 mm) in the rectum. (Injection, Polypectomy). Diverticulosis of the the left side of the colon. Internal hemorrhoids. Plan: Await pathology results; if carcinoid is confirmed, will need transanal excision. Follow-up office visit in 2-3 weeks. This section is an excerpt of the full report. Max Tovar MD GI PROCEDURE ORDERABLES Final R esult [facility] [address] [place] [address] documented in this encounter Visit Diagnoses Not on filedocumented in this encounter Additional Health Concerns Infection Onset Date Last Indicated Resolved Time INFLUENZA 07/01/2022 07/01/2022 07/16/2022 10:1 4 PM EST documented as of this encounter Care Teams Divemaster Relationship Specialty Start Date End Date Summer Garcia MD [address] [place] [address] PCP - General Family Medicine 08/06/19 Aldo Arrington MD [address] [place] [address] Internal Medicine-Cardiovascular Disease 04/29/24 documented as of this encounter
--- OUTSIDE RECORDS SUMMARY | 2025-04-01 11:49 | XMS_ITS | Encounter Summary ---
Author Organization [place] [address] Care Team Providers Care Director Of Media Name Role Phone Summer Garcia MD Primary Care Provider [phone] Aldo Arrington MD Unavailable [phone] Encounter Details Date Type Department Care Team (Late st Contact Info) Description 06/28/2020 Orders Only SEP Gastro [facility]H [address] [facility] Building [address] [place] [id number] Max Tovar MD Social History Tobacco Use Types Packs/Day Years Used Date Smoking Tobacco: Former Cigarettes 1 20 0 08/20/1984 - 08/20/2004 Smokeless Tobacco: Never Alcohol Use Standard Drinks/Week Comments Yes 8 (1 standard drink = 0.6 oz pur e alcohol) per week PHQ-2 Answer Date Recorded PHQ-2 Score 0 04/12/2020 Sex and Gender Information Value Date Recorded Sex Assigned at Not on file Legal Sex Male 6:59 PM EDT Gender Identity Not on file Sexual Orientation Not on file COVID-19 Exposure Response Date Recorded In the last month, have you been in contact with someone who was confirmed or suspected to have Coronavirus / COVID-19? No / Unsure 06/23/2020 3:50 PM EST documented as of this encounter Functional Status * Is the person deaf or does he/she have serious difficulty hearing? Answer Date of Assessment Author No 04/12/2020 7:57 AM EDT Elicia Mccarthy LPN * Is the person blind or does he/she have serious difficulty seeing even when wearing glasses? Answer Date of Assessment Author No 04/12/2020 7:57 AM EDT Elicia Mccarthy LPN * Does this person have serious difficulty walking or climbing stairs? Answer Date of Assessment Author No 04/12/2020 7:57 AM EDT Elicia Mccarthy LPN * Does this person have difficulty dressing or bathing? Answer Date of Assessment Author No 04/12/2020 7:57 AM EDT Elicia Mccarthy LPN * Because of a physical, mental or emotional condition, does this person have difficulty doing errands alone such as visiting a doctor's office or shopping? Answer Date of Assessment Author No 04/12/2020 7:57 AM EDT Elicia Mccarthy LPN documented as of this encounter Mental Status * Because of a physical, mental or emotional condition, does this person have serious difficulty concentrating, remembering or making decisions? Answer Entry Date Author No 04/12/2020 7:57 AM EDT Elicia Mccarthy LPN documented in this encounter Plan of Treatment Upcoming Encounters Date Type Department Care Team (Late st Contact Info) Description 04/09/2025 9:15 AM EDT Office Visit [facility] [address] [place] [address] Jj Motta MD [address] [facility] [address] [place] [address] 04/23/2025 3:00 PM EDT Office Visit [facility] [address] [place] [address] Summer Garcia MD [address] [place] [address] documented as of this encounter Goals Goal Patient Goal Type Associated Problems Recent Progress Patient-Stated? Author Blood Pressure < 140/90 Blood Pressure 122/80(2024 12:23 PM EDT) No Omid Quezada, CYNDIE Eat better, exercise, reach an ideal body weight General No Abelino, Kayli Gerda, RMA Stay Tobacco Free Lifestyle Kayli Woods RMA documented as of this encounter Procedures Procedure Name Priority Date/Time Associated Diagnosis Comments GMED COLONOSCOPY Routine 06/28/2020 7:00 AM EST documented in this encounter Results * GMED COLONOSCOPY (06/28/2020 7:00 AM EST) 06/28/2020 7:00 AM EST Impressions [facility] - 06/28/2020 7:43 AM EST The examination was negative from a standpoint of screening. . Diverticulosis of the the left side of the colon. Tattoo in rectum. Internal hemorrhoids. Plan: Colonoscopy in 5 years due to previous history of polyps. This section is an excerpt of the full report. us Max Tovar MD GI PROCEDURE ORDERABLES Final R esult [facility] [address] [place] [address] documented in this encounter Visit Diagnoses Not on filedocumented in this encounter Additional Health Concerns Infection Onset Date Last Indicated Resolved Time INFLUENZA 07/01/2022 07/01/2022 07/16/2022 10:1 4 PM EST documented as of this encounter Care Teams Director Of Media Relationship Specialty Start Date End Date Summer Garcia MD [address] [place] [address] PCP - General Family Medicine 08/06/19 Aldo Arrington MD [address] [address] Internal Medicine-Cardiovascular Disease 04/29/24 documented as of this encounter
--- OUTSIDE RECORDS SUMMARY | 2025-04-01 11:49 | XMS_ITS | Encounter Summary ---
Author Organization [facility] Address [address] [place] [address] Care Team Providers Care Joint Runner Name Role Phone Rufus Church MD Primary Care Provider [phone] Jose Ramon Mendoza MD Unavailable [phone] Galina Baxter RN Unavailable [phone] Josselin Skelton LPN Unavailable [phone] Pam Zambrano RN Unavailable [phone] Gaetano Wild RN Unavailable Summer Garcia Primary Care Provider [phone] Reason for Visit * Reason Comments Medications Refill Encounter Details Date Type Department Care Team (Late st Contact Info) Description 11/02/2020 Refill [facility] - Urology, [facility] [address] [place] [address] [place] [phone] Robbie Giraldo MD Medications Refill Social History Tobacco Use Types Packs/Day [...] have Coronavirus / COVID-19? No / Unsure 11/04/2020 10:04 AM EDT documented as of this encounter Functional Status [...] as of this encounter Visit Diagnoses Diagnosis Prostate cancer (CMS/HCC) Malignant neoplasm of prostate documented in this encounter Care Teams Joint Runner Relationship Specialty Start Date End Date Rufus Church MD PCP - General Cardiology 11/19/15 06/19/21 Summer Garcia [address] [place] [address] PCP - General 06/20/21 Jose Ramon Mendoza MD [address] [facility] [address] [place] [address] Urology 10/07/20 Galina Baxter, RN [address] [place] [address] Registered Nurse 10/07/20 Josselin Skelton LPN [address] [place] [address] DEPARTMENT ASSISTANT 11/01/20 Pam aZmbrano RN [address] [place] [address] Oncology Nurse Navigator 12/20/20 Gaetano Wild RN [address] [place] [address] Registered Nurse Hematology and Oncology 06/09/21 documented as of this encounter
--- OUTSIDE RECORDS SUMMARY | 2025-04-01 11:49 | XMS_ITS | Encounter Summary ---
Author Organization [facility] Address [address] [place] [address] Care Team Providers Care Respiratory Care Assistant Name Role Phone Jose Ramon Mendoza MD Unavailable [phone] Galina Baxter RN Unavailable [phone] Josselin Skelton LPN Unavailable [phone] Pam Zambrano RN Unavailable [phone] Gaetano Wild RN Unavailable Summer Garcia Primary Care Provider [phone] Reason for Visit * Reason Onset Date Comments Plan of Care follow up 08/25/2022 Encounter Details Date Type Department Care Team (Late st Contact Info) Description 08/25/2022 Clinical Update [facility], [facility] Natalia [address] [facility] [address] Pam Zambrano, RN [address] [place], [place] [id number] Plan of Care follow up Social History Tobacco Use Types Packs/Day Years [...] prostate documented in this encounter Care Teams Respiratory Care Assistant Relationship Specialty Start Date End Date Summer Garcia [address] [place] [address] PCP - General 06/20/21 Jose Ramon Mendoza MD [address] [facility]. [address] [address] Urology 10/07/20 Galina Baxter RN [address] [place] [address] Registered Nurse 10/07/20 Josselin Skelton LPN [address] [place] [address] NEWS TECHNICAL DIRECTOR 11/01/20 Pam Zambrano, RN [address] [place] [address] Oncology Nurse Navigator 12/20/20 StattGaetano RN [address] [place] [address] Registered Nurse Hematology and Oncology 06/09/21 documented as of this encounter
--- NOTE | 2025-04-01 12:00 | CA_ITS ---
APPROVED REPORT EXAM: Comprehensive 2D, Doppler, and color-flow Echocardiogram Nylon Mender: Marlin Salas RDCS Ht: 5 ft 10 in Wt: 208lbs BSA: 2.12 BP: 153/77 mmHg Indications: CAD PRE OP EVAL M-Mode Dimensions RVDd 2.97 cm (0.9-2.6) LA Diam 3.83 cm (1.9-4.0) LVDd 4.90 cm (3.5-5.7) LVDs 3.73 cm (3.5-5.7) IVSd 0.92 cm (0.6-1.1) PWd 0.68 cm (0.6-1.1) EF (Teich) 47.40% FS 23.90% EDV (Teich) 112.80 mL ESV (Teich) 59.30 mL LV Diastology E Decel Time 173 (160-240 msec) E/A Ratio 1.1 Mitral Valve MV E Max Nas. 60.0 (40-130 cm/s) MV A Velocity 54.0 (40-130 cm/s) E/A Ratio 1.13 MV PHT 51.0 ms Left Ventricle The left ventricle is normal size. Left ventricular systolic function is normal. The left ventricular ejection fraction is within the normal range. There is normal left ventricular wall thickness. There is normal LV segmental wall motion. The left ventricular diastolic function is normal. LVEF is 55% Right Ventricle The right ventricle is mildly dilated. The right ventricular systolic function is normal. Atria The left atrium size is normal. The right atrium size is normal. There is no color Doppler evidence of interatrial shunt. Aortic Valve The aortic valve is mildly thickened. There is no hemodynamically significant aortic valvular stenosis. No aortic regurgitation is present. Mitral Valve The mitral valve is normal in structure. No evidence of mitral valve stenosis. Trace mitral regurgitation is present. Tricuspid Valve The tricuspid valve leaflets are thin and pliable. Trace tricuspid regurgitation. There is insufficient TR jet to estimate RVSP. Pulmonic Valve The pulmonary valve is grossly normal in structure. Trace pulmonic valve regurgitation is present. Great Vessels The aortic root is normal in size. IVC is normal in size and collapses >50% with inspiration. Pericardium There is no pericardial effusion. Other Information Study Quality: Fair Conclusion Normal biventricular systolic function. Mild RV dilation. No significant valvular stenosis or regurgitation. Electronically signed by : Cata Chisholm MD 04/01/2025 13:31:48
== END 2025-04-01 23:59 | disposition home or self-care (01) ==
LOC: RT 11:47
PROVIDERS: PCP Family Medicine; Visit Provider Internal Medicine
DX: Z01.810 Encounter for preprocedural cardiovascular examination (principal); I51.7 Cardiomegaly; I25.10 Atherosclerotic heart disease of native coronary artery without angina pectoris; R94.31 Abnormal electrocardiogram [ECG] [EKG]
CPT/HCPCS: 93306